=== PATIENT | female | born 1960 | race Caucasian/White ===

== ENCOUNTER 2019-07-10 09:57 | Outpatient (CLI) | payer BC, SELFPAY ==
--- NOTE | 2019-07-11 14:42 | ONC CON_ITS ---
Dr. Sr New Patient Note Patient: Mira Mohan Unit #: [id number]: 1960 Dicatated By: Black Sr M.D.Date of Visit: Jul 10, 2019 Onc MED New Patient/Consult Referring Physician: Dr. Daljit Chen M.D. Chief Complaint: Cervical cancer. History of Present Illness: This is a 58 year-old woman with adenocarcinoma of the endocervix, stage IB1 (T1b1, N1, M0). She has been in good general health. She was seen by Dr. Spence for a well woman check on 02/09/2019. She had an abnormal Pap smear with the finding of atypical glandular cells. She then underwent D&C on 03/09/2019. Pathology showed well-differentiated adenocarcinoma involving multiple sites including the endocervix, the ectocervix, and the endometrium. She was referred to Dr. Chen. She had further evaluation with staging PET/CT on 05/15/2019. That study showed significant metabolism in the endometrium consistent with the known malignancy. There were no other sites of metabolically active malignancy noted. MRI of the pelvis on 05/18/2019 showed foci or wall thickening involving the lower endometrial canal extending along the endocervical canal without definite invasion outside of the uterus or through the cervical stroma. An upper limits of normal size right external iliac lymph node also was noted. On 05/22/2019 she underwent robotic-assisted total laparoscopic radical hysterectomy, bilateral salpingo-oophorectomy, bilateral pelvic and periaortic sentinel lymphadenectomy, and laparoscopic omentectomy. Grossly there did appear to be suspicious sentinel lymph nodes but there was no gross evidence of disease outside the uterus. One small area in the peritoneum on the distal ileum mesentery was biopsied. Pathology showed well differentiated adenocarcinoma which appeared to be arising in the endocervix. There was no malignancy identified in the endometrium. The tumor measured 2.0 cm in maximum diameter. Stromal invasion was measured at 3 mm compared to a total cervical thickness of 13 mm. The ectocervical margin and the radial margin were uninvolved. There was evidence of lymphovascular invasion. The specimen contained a total of 8 lymph nodes, which included 4 sentinel lymph nodes. There was involvement in 1/1 right obturator sentinel lymph node. All other lymph nodes were negative. There was no malignancy identified in the distal ileum mesentery biopsy. She has had an uneventful postoperative recovery. At this point she still has significant fatigue, but she has gone back to work in her [employer] shop. Her ECOG score is 1. She has good appetite. She has gained a little weight. She has not had fever or night sweats. She has been having hot flashes for the past 15 years or so. She does not complain of shortness of breath, cough, or chest pain. She has no GI complaints other than her stools have been a little loose and more frequent since the surgery, though she has not been having actual diarrhea. She has not been aware of any blood in the stool. Her urination is also been more frequent. She has some achiness in her joints, mainly the knees. She occasionally has numbness in her hands. She has no other focal neurologic symptoms. She has been diagnosed with obstructive sleep apnea, but she has not yet been evaluated for CPAP. Past Medical History: Her other medical illnesses include hypertension and obstructive sleep apnea. Past Surgical History: She underwent D&C on 03/09/2019 and she underwent robotic-assisted total laparoscopic radical hysterectomy, bilateral salpingo-oophorectomy, bilateral pelvic and periaortic sentinel lymphadenectomy, and laparoscopic omentectomy on 05/22/2019. Her other surgeries have been limited to Caesarean section and tubal ligation. Medications: Biotin 1 Capsule (of 2500 mcg) Oral daily, hydroCHLOROthiazide 1 Tablet (of 25 mg) Oral daily, Lisinopril 1 Tablet (of 10 mg) Oral daily Allergies: Penicillins Social History: Ms. Mohan is . 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 She is a non-smoker. She does not drink alcohol. Family History: Father age 85, reportedly of flu. He had prostate cancer and diabetes. Mother at age 74 with a blood clot after surgery. One sister is in good health. Review Of Symptoms: Constitutional - Her appetite is good and her weight is up some. No fever or chills. She has hot flashes and sweating. ECOG score is, Eyes - She has had some age-related decline in vision, ENMT - No hearing loss, but she has tinnitus. She has sinus congestion in the evenings. No mouth sores. She has a sore throat this morning, otherwise she does not have any problems. No difficulty swallowing, Hematologic/Lymphatic - No abnormal bruising or bleeding, Respiratory - No shortness of breath. She has sleep apnea, but she has not yet been evaluated for CPAP. No cough. No pleuritic pain or hemoptysis, Cardiovascular - No angina pain. No palpitations, Gastrointestinal - No nausea or vomiting. She has heartburn, depending on what she eats. She has had more frequent loose stools. No blood in the stool or black stools, Genitourinary (F) - No dysuria or hematuria. She has urinary frequency. No urgency or incontinence, Musculoskeletal - She has some achiness in her knees, Integumentary - No skin complications, Neurologic - She has occasional sinus headaches. No dizziness. No numbness/paresthesias or other focal neurologic symptoms, Psychiatric - No anxiety or depression. No insomnia. Vital Signs: Performed on Jul 10, 2019 10:25: 0, 34.65 (HIGH), 2.01 sq.m, 65 in, 97 %, 81 /min, 19 /min, 136/81 mm(hg), 98.3 F (LOW), and 208.2 lbs (HIGH). Physical Examination: Constitutional - She appears to be in good general health, Eyes - Sclerae nonicteric. Conjunctivae clear, ENMT - No lesions noted in the oral cavity, Neck - No mass or thyromegaly, Hematologic/Lymphatic - No cervical, clavicular, or axillary adenopathy, Respiratory - Lungs are clear with good air movement bilaterally, Cardiovascular - Heart rhythm is regular. There is no murmur, gallop, or rub noted, Abdomen - Soft. There is mild tenderness in the upper abdomen. Liver and spleen are not enlarged. There is no abdominal mass or ascites noted and there is no inguinal adenopathy, Back/Spine - No spine or CVA tenderness noted, Extremities - No edema. Dorsalis pulses are palpable bilaterally, Integumentary - No rashes. No suspicious skin lesions noted, Neurologic - No focal neurologic deficits noted. Impression: 1. Patient with well differentiated adenocarcinoma of the endocervix, stage IB1 (T1b1, N1, M0). 2. She underwent robotic-assisted total laparoscopic radical hysterectomy, bilateral salpingo-oophorectomy, bilateral pelvic and periaortic sentinel lymphadenectomy, and laparoscopic omentectomy on 05/22/2019. Her other medical illnesses include: 3. Hypertension. 4. Obstructive sleep apnea. Plan: I reviewed the findings on the imaging studies and the pathology results. We discussed the clinical implications. She has well-differentiated adenocarcinoma of the endocervix. Her disease has been completely resected with the radical hysterectomy procedure, but there was involvement in 1 sentinel lymph node, which does put her at increased risk of recurrence. As such, she has been recommended to undergo postoperative adjuvant chemoradiation. The initial plan will be to administer a standard course of radiation with weekly cisplatin chemotherapy. I reviewed anticipated side effects with the chemotherapy including the potential for nausea/vomiting, fatigue, alopecia, low blood counts, and neuropathy, among others. I will arrange for her to see Dr. Schulte for radiation oncology consultation and planning. I will confer with Dr. Chen regarding any additional treatment he may want to recommend. If he is not intending any other chemotherapy, I will try and administer the cisplatin via peripheral IV, as she does appear to have good peripheral venous access. Signed By: Black Sr M.D. <<Signature on File>>
== END 2019-07-10 09:58 | disposition home or self-care (01) ==
LOC: ONCMED 09:57
PROVIDERS: Family Provider Family Medicine; PCP Family Medicine; Referring Provider Obstetrics & Gynecology Gynecologic Oncology; Visit Provider Internal Medicine Medical Oncology
DX: Z01.89 Encounter for other specified special examinations (principal)

== ENCOUNTER 2019-08-08 06:48 | Outpatient (RCR) | payer BC, SELFPAY ==
--- NOTE | 2019-07-12 14:13 | N.ONRAD NP_ITS ---
Radiation Oncology New Patient Visit Patient: Mira Mohan MR#: [id number] : 1960> Age: 58> Sex: Female> Dictated by: Dr. Christian Schulte Date of Service: 07/12/2019 Referring Physician(s) : Dr. Daljit Chen Primary Diagnosis: C53.0 - malignant neoplasm of endocervix, Diagnosed 07/10/2019 (active), stage ib1, t1b1, n1, m0. Previous Treatment: Robotic assisted total laparoscopic radical hysterectomy, bilateral salpingo-oophorectomy, bilateral pelvic and periaortic sentinel lymphadenectomy and laparoscopic omentectomy on May 22, 2019 Chief complaint: Endocervical adenocarcinoma s/p radical hysterectomy and sentinel lymphadenectomy History of Present Illness: This is a 58 y/o woman with a family history of pros with findings of an abnormal Pap smear on February 09, 2019. She underwent D&C on March 09, 2019 and the pathology showed well-differentiated adenocarcinoma involving endocervix, ectocervix and the endometrium. PET/CT on May 15, 2019 showed significant FDG activity in the endometrium consistent with the known malignancy with no other evidence of hypermetabolic malignancy. MRI of the pelvis on May 18, 2019 showed wall thickening involving the lower endometrial canal extending along the endocervical canal without definite evidence of invasion outside of the uterus or through the cervical stroma. A right external iliac lymph node was also noted. The patient underwent robotic assisted total laparoscopic radical hysterectomy, bilateral salpingo-oophorectomy, bilateral pelvic and periaortic sentinel lymphadenectomy and laparoscopic omentectomy on May 22, 2019. Surgical pathology showed well-differentiated endocervical adenocarcinoma with greatest dimension of 2 cm. Depth of stromal invasion 3/13 mm. Ectocervical and radial margins negative. Lymphovascular invasion present, a total of 8 regional lymph nodes was examined. Metastatic adenocarcinoma was identified in one right obturator sentinel lymph node. Omentectomy specimen negative for malignancy. Pathological staging is pT1B1, pN1. The patient has recovered from the surgery well with no complications. She notes occasional right pelvic pain but denies nausea, vomiting, diarrhea, dysuria, hematuria or vagina spotting. Current Medications: Biotin, hydroCHLOROthiazide, lisinopril. Allergies: Penicillins. Medical History: - Hypertension, - obstructive sleep apnea. No history of collagen vascular disease. No previous radiation therapy. Surgical History: Caesarean section, dialation & curettage on 03/09/2019, laparoscopic radical hysterectomy, bilateral salpingo-oophorectomy, omentectomy, lymph node sampling on 05/22/2019 and tubal ligation in 1986. Family History: Father age 85, reportedly of flu. He had prostate cancer and diabetes. Mother at age 74 with a blood clot after surgery. One sister is in good health. Social History: Last screened on 07/12/2019 - Never smoked. Screened on 07/10/2019 - Never drank. 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 Age of menarche at 14 years old. Went through natural menopause around age [age] years old. No H/O receiving HRT. Has H/O using BCP for about 3 to 4 years. Review of Systems: Constitutional - Complains of moderate fatigue. Complains of night sweats which occur every night. Denies lack of appetite, fever and change in weight. Eyes - Denies blurred vision. ENMT - Complains of tinnitus. Denies dysphagia, ear pain, mouth dryness, stomatitis and altered taste. Neck - Denies neck pain. Integumentary - Denies rash. Breasts - Denies pain. Cardiovascular - Complains of occasional palpatiations. Denies arrhythmias, chest pain and edema. Respiratory - Complains of a mild cough occasionally. Denies dyspnea and wheezing. Gastrointestinal - Complains of persistent diarrhea which is characterized as loose, semisolid in the last week has been having to go 3 to 4 times per day. Complains of mild heartburn / dyspepsia. Denies abdominal pain, constipation, melena / GI bleeding, nausea and vomiting. Genitourinary (F) - Complains of incontinence since the surgery. Complains of nocturia gets up about 1 time per night. Complains of urgency that began within the last several days. Denies dysuria, frequency, hematuria, vaginal discharge / bleeding and vaginal spotting. Musculoskeletal - Complains of arthritis and joint pain in the knees, fingers, right hip, and lower back. Denies bone pain. Has occasional lower right groin pain. Neurologic - Complains of headaches occasionally. Denies dizziness and abnormal gait. Endocrine - hot flashes for the past 15 years. Denies diabetes and thyroid disease. Hematologic/Lymphatic - Denies tender or enlarged lymph nodes. Vital Signs: Performed on 07/12/2019 9:32 AM BMI - 34.647 kg/m2 (high), Height - 65.00 in, Weight - 208.2 lbs, Temperature - 98.3 f, Pulse - 72, Respiration - 18, O2 Sat - 96 %, Pain - 0, Fatigue - 5 and BP - 117/ 83 mm(hg). Physical Exam: Pertinent to diagnosis and treatment. General: Alert and oriented x 3. No acute distress. HEENT: Normocephalic, atraumatic. EOMI ( Extraocular Movements Intact), PERRLA ( Pupils Equal, Round, Reactive to Light and Accommodation), Sclerae anicteric. Oral cavity is clear without lesions, masses or ulcers. NECK: Supple without supraclavicular or jugular lymphadenopathy. LUNGS: Clear to auscultation bilaterally without rales, rhonchi or wheeze. HEART: Regular rate and rhythm, normal S1 and S2 without murmur, gallop or rub. MUSCULOSKELETAL: No tenderness or percussion pain over the axial skeleton, scapulae or pelvis. ABDOMEN: Soft, nontender, nondistended without masses or organomegaly. Bowel sounds are present. Surgical incisions are healed up well with no signs of bleeding or infection. EXTREMITIES: No peripheral edema is identified. Limited motor and sensory examination are grossly intact and symmetric bilaterally. NEUROLOGIC: Cranial nerves II ???XII are grossly intact. Normal sensation, strength 5/5 in all extremities, normal gait, no ataxia. Performance Status: 1 - No physically strenuous activity, but ambulatory and able to carry out light or sedentary work (e.g. office work, light house work). (ECOG) Pathology: Endocervical adenocarcinoma Lab: none pending Impression: The patient is a 58 year old woman with a diagnosis of pT1b1, pN1, M0 endocervical adenocarcinoma status post laparoscopic radical hysterectomy, bilateral salpingo-oophorectomy, bilateral pelvic and periaortic sentinel lymphadenectomy. Plan: We will deliver adjuvant concurrent chemoradiation to the pelvis. She will see Dr. Mohr at [facility] in [place] to be evaluated for HDR brachytherapy to the vaginal cuff. The procedure, benefit, risks and potential side effects of radiation therapy were explained to the patient. The potential side effects include but are not limited to fatigue, skin reaction, pubic hair loss, urinary symptoms such as dysuria, urgency, frequency, hematuria, nocturia and incontinence, rectal irritation/bleeding, diarrhea, bowel obstruction, damage to femoral heads, infertility, urethral/vaginal stricture, proctitis, and secondary malignancy. Ms Mohan expressed good understanding and decided to proceed with the recommended treatment. She has signed an informed consent for radiotherapy. She will be scheduled for CT simulation and we will coordinate with med onc to start concurrent chemoradiation therapy. Signed by: 07/12/2019 2:11:55 PM <<Signature on File>> CPT Code: CPT Code: Signed By: Dr. Christian Schulte, 07/12/2019 2:11:56 PM <<Signature on File>>
--- NOTE | 2019-07-13 | CT_ITS ---
Radiation Therapy Planning CT images; total exam DLP: 3151.71 mGy-cm MTDD
[2019-07-24] MEDS: sodium chloride 0.9% 250 ML 75 ML IV (08:55)
[2019-07-24 09:10] LABS: Basophils % 0.6 %; Eosinophils # 0.1 10^3/uL (0.0-0.8); Eosinophils % 2.6 %; Hematocrit 39.2 % (37.0-47.0); Hemoglobin 13.2 g/dL (11.5-15.3); Lymphocytes # 1.4 10^3/uL (0.8-4.8); Mean Corpuscular HGB Conc 33.7 g/dL (30.0-36.0); Mean Corpuscular Volume 94.9 fL (81-99); Mean Platelet Volume 10.8 fL (7.4-10.4); Monocytes # 0.3 10^3/uL (0.2-0.9); Monocytes % 6.4 %; Neutrophils # 2.9 10^3/uL (1.8-7.7); Neutrophils % 61.2 %; Nucleated Red Blood Cells % 0 %; Platelet Count 221 10^3/cmm (130-400); Red Blood Count 4.13 10^6/uL (4.1-5.3); Red Cell Distribution Width 12.1 % (12.1-15.1); White Blood Count 4.7 10^3/uL (4.0-10.0)
[2019-07-24 09:33] LABS: Alanine Aminotransferase 18 U/L (0-33); Albumin Level 4.2 g/dL (3.5-5.2); Alkaline Phosphatase 67 IU/L (35-105); Aspartate Amino Transferase 16 U/L (0-32); Blood Urea Nitrogen 12 mg/dL (6-20); Calcium 9.4 mg/dL (8.5-10.5); Carbon Dioxide 27 mmol/L (22-29); Chloride 104 mmol/L (98-107); Globulin 2.8 g/dL (1.3-4.6); Glomerular Filtration Rate 85.9 mL/min (90-130); Glucose 155 mg/dL (65-115); Osmolality Calculated 289 mOsm/kg (285-295); Sodium 140 mmol/L (136-145); Total Bilirubin 0.5 mg/dL (0.15-1.2)
[2019-07-24] MEDS: FUROsemide 10 mg/mL SDV 2mL 20 MG IV (13:12)
[2019-07-24] MEDS: potassium chloride 20 MEQ in sodium chloride 0.9% 500 ML 250 MEQ IV (13:15)
--- NOTE | 2019-07-25 11:54 | ONCRAD TMN_ITS ---
Radiation Oncology Weekly Treatment Management Patient: Mira Mohan MR#: [id number] : 1960> Age: 59> Sex: Female Dictated by: Dr. Mahendra Farnsworth Date of Service: 07/25/2019 Referring Physician(s) : Dr. Daljti Chen Primary Diagnosis: C53.0 - Malignant neoplasm of endocervix, Diagnosed 07/10/2019 (Active) Stage IB1, T1b1, N1, M0 Radiotherapy to date: Course: Pelvis 2019, Treatment Site: Pelvis 45Gy, Ref. ID: Plevis 45Gy, Energy: 15X, Dose/Fx (cGy): 180, #Fx: , Dose Correction (cGy): 0, Total Dose (cGy): 360, Start Date: 07/24/2019, Elapsed Days: 1 Current Complaints/Interval History: Ms. Mohan started postoperative radiation to the pelvis yesterday. She also received her first session of weekly chemotherapy. She tolerated the chemotherapy well. She had a wave of nausea about 5 PM and has had no other problem. With her routine blood work yesterday she had a glucose of 155 which was a surprise to her. She was not absolutely fasting but had but had had minimal intake prior to that. She states her glucose is usually 95 in the morning. I told her she will be having blood work weekly and that can be monitored. She had no problems with her first radiation treatment. She did have catheter for about a week postoperatively. She has periodically had slight tingling with urination and occasional urgency. There is been no significant change recently. She denies hematuria, dysuria, or pyuria. I told her if her symptoms are troublesome we will get a urinalysis to evaluate for infection. I do not believe that she needs a urinalysis at this time. She asked about complications from treatment and if she can do anything to prevent them. I told her there is nothing specific that she can do to protect the bowel and bladder. We discussed vaginal stenosis and the use of a dilator. She already has the dilator. She will need to use it because her is diabetic and they are not sexually active. I discussed that the dilator will be extremely important if she undergoes brachytherapy following external beam radiation. No other questions. Continue as planned. Current Medications: Aloxi, biotin, cISplatin, dexamethasone Sodium Phosphate, emend, furosemide, hydroCHLOROthiazide, lisinopril, lORazepam, magnesium Sulfate, potassium Chloride, prochlorperazine Maleate. Allergies: Penicillins. Vital Signs: Physical Exam: Appears stable, no skin erythema or desquamation. Performance Status: 1 - No physically strenuous activity, but ambulatory and able to carry out light or sedentary work (e.g. office work, light house work). (ECOG) Lab: None pending in Radiation Oncology. Test performed on 07/24/2019 8:50 AM MPV - 10.8 fl (high), eGFR - 85.9 ml/min (low) and Glucose - 155 mg/dl (high). Imaging: No new diagnostic imaging was performed since the last weekly treatment visit. All radiation therapy related imaging (including but not limited to kV, MV, and CBCT generated images) was reviewed. Appropriate changes, if any, were made to assure accurate target localization. Impression/Plan: Tolerating treatment well with expected side effects. Continue treatment as planned. CPT: 64209 Signed by: Dr. Mahendra Farnsworth>07/25/2019 11:52:25 AM <<Signature on File>>
[2019-07-31] MEDS: sodium chloride 0.9% 250 ML 75 ML IV (08:50)
[2019-07-31 08:51] LABS: Basophils % 0.2 %; Eosinophils # 0.1 10^3/uL (0.0-0.8); Eosinophils % 2.4 %; Hematocrit 40.9 % (37.0-47.0); Hemoglobin 13.8 g/dL (11.5-15.3); Lymphocytes # 0.8 10^3/uL (0.8-4.8); Lymphocytes % 17.9 %; Mean Corpuscular HGB Conc 33.7 g/dL (30.0-36.0); Mean Corpuscular Volume 94.9 fL (81-99); Mean Platelet Volume 10.4 fL (7.4-10.4); Monocytes # 0.2 10^3/uL (0.2-0.9); Neutrophils # 3.4 10^3/uL (1.8-7.7); Neutrophils % 73.8 %; Nucleated Red Blood Cells % 0 %; Platelet Count 226 10^3/cmm (130-400); Red Blood Count 4.31 10^6/uL (4.1-5.3); Red Cell Distribution Width 11.8 % (12.1-15.1); White Blood Count 4.6 10^3/uL (4.0-10.0)
[2019-07-31 09:08] LABS: Alanine Aminotransferase 20 U/L (0-33); Albumin Level 4.5 g/dL (3.5-5.2); Alkaline Phosphatase 76 IU/L (35-105); Anion Gap 12.8 (5-19); Aspartate Amino Transferase 12 U/L (0-32); Blood Urea Nitrogen 11 mg/dL (6-20); Calcium 9.9 mg/dL (8.5-10.5); Carbon Dioxide 29 mmol/L (22-29); Chloride 98 mmol/L (98-107); Globulin 2.9 g/dL (1.3-4.6); Glomerular Filtration Rate 102.7 mL/min (90-130); Glucose 143 mg/dL (65-115); Osmolality Calculated 281 mOsm/kg (285-295); Potassium 3.8 mmol/L (3.5-5.1); Sodium 136 mmol/L (136-145); Total Bilirubin 0.4 mg/dL (0.15-1.2); Total Protein 7.4 g/dL (6.6-8.7)
[2019-07-31] MEDS: FUROsemide 10 mg/mL SDV 2mL 20 MG IV (12:56)
[2019-07-31] MEDS: potassium chloride 20 MEQ in sodium chloride 0.9% 500 ML 500 MEQ IV (13:00)
--- NOTE | 2019-08-01 09:25 | ONC FU_ITS ---
Dr. Sr Patient Follow-Up Note Patient: Mira Mohan Unit #: [id number]: 1960 Dicatated By: Black Sr M.D.Date of Visit:Jul 31, 2019 Onc Med Follow-up/Prog Note Chief Complaint: Cervical cancer. History of Present Illness: This is a 58 year-old woman with adenocarcinoma of the endocervix, stage IB1 (T1b1, N1, M0). She has been in good general health. She was seen by Dr. Spence for a well woman check on 02/09/2019. She had an abnormal Pap smear with the finding of atypical glandular cells. She then underwent D&C on 03/09/2019. Pathology showed well-differentiated adenocarcinoma involving multiple sites including the endocervix, the ectocervix, and the endometrium. She was referred to Dr. Chen. She had further evaluation with staging PET/CT on 05/15/2019. That study showed significant metabolism in the endometrium consistent with the known malignancy. There were no other sites of metabolically active malignancy noted. MRI of the pelvis on 05/18/2019 showed foci or wall thickening involving the lower endometrial canal extending along the endocervical canal without definite invasion outside of the uterus or through the cervical stroma. An upper limits of normal size right external iliac lymph node also was noted. On 05/22/2019 she underwent robotic-assisted total laparoscopic radical hysterectomy, bilateral salpingo-oophorectomy, bilateral pelvic and periaortic sentinel lymphadenectomy, and laparoscopic omentectomy. Grossly there did appear to be suspicious sentinel lymph nodes but there was no gross evidence of disease outside the uterus. One small area in the peritoneum on the distal ileum mesentery was biopsied. Pathology showed well differentiated adenocarcinoma which appeared to be arising in the endocervix. There was no malignancy identified in the endometrium. The tumor measured 2.0 cm in maximum diameter. Stromal invasion was measured at 3 mm compared to a total cervical thickness of 13 mm. The ectocervical margin and the radial margin were uninvolved. There was evidence of lymphovascular invasion. The specimen contained a total of 8 lymph nodes, which included 4 sentinel lymph nodes. There was involvement in 1/1 right obturator sentinel lymph node. All other lymph nodes were negative. There was no malignancy identified in the distal ileum mesentery biopsy. Her pathologic staging was T1b1, N1. With the involved lymph node, she was recommended to undergo chemoradiation utilizing weekly cisplatin for the chemotherapy. Her other medical illnesses have been limited to hypertension and obstructive sleep apnea. She has not yet been evaluated for CPAP. She is a non-smoker. INTERIM HISTORY: She began week 1 cisplatin concurrently with radiation on 07/24/2019. She is seen for a scheduled visit. She has been feeling pretty good generally, though she does have fatigue and she has been sleeping a lot. She is still going to work part-time. ECOG score is 1. Thus far she has had just mild nausea. Her appetite is okay, though she also is having some dysguesia. She had a slight fever 1 day last week. She has had a few hot flashes. She does have a mild headache for most of the week. She also reports having had ringing in her ears and tingling in her fingers and toes the first evening after her treatment last week. Those symptoms had resolved by the following day. She has had no mouth sores. She has no shortness of breath, cough, or chest pain. She has had some mild acid reflux. She has no complaints with bowel or bladder function. She has no significant joint or bone pain. Medications: Biotin 1 Capsule (of 2500 mcg) Oral daily, hydroCHLOROthiazide 1 Tablet (of 25 mg) Oral daily, Lisinopril 1 Tablet (of 10 mg) Oral daily Allergies: Penicillins Review of Systems: Constitutional - Her energy level is low, but she is able to go to work for a few hours a day. Her appetite comes and goes. Her weight is stable. She had a slight fever last week. No chills. She has had a few hot flashes with sweating. ECOG score is 1, ENMT - No sinus congestion/drainage. No mouth sores. No sore throat or difficulty swallowing. She had some ringing in her ears the first evening following her treatment last week, Hematologic/Lymphatic - She bruises easily, Respiratory - No shortness of breath. No cough. No pleuritic pain or hemoptysis, Cardiovascular - No angina pain. No palpitations, Gastrointestinal - She has had just mild nausea. No vomiting. She is having occasioanl heartburn. No diarrhea or constipation. No blood in the stool or black stools, Genitourinary (F) - No dysuria or hematuria. No urinary frequency. No urgency or incontinence, Musculoskeletal - No joint or bone pain, Integumentary - No skin complications, Neurologic - She has had a mild headache. No dizziness. She had some numbness and tingling in her hands, also just the first evening following her treatment, Psychiatric - No anxiety or depression. No insomnia. Vital Signs: Performed on Jul 31, 2019 09:00 Height - 65.00 in Weight - 206.4 lbs (LOW) BSA - 2.00 sq.m BMI - 34.35 (HIGH) Temperature - 98.56 F Pulse - 70 /min Respiration - 18 /min BP - 130/72 mm(hg) O2 Sat - 97 % Pain - 0 Physical Examination: Constitutional - She looks good generally, Eyes - Sclerae nonicteric. Conjunctivae clear, ENMT - No lesions noted in the oral cavity, Hematologic/Lymphatic - No cervical, clavicular, or axillary adenopathy, Respiratory - Lungs are clear with good air movement bilaterally, Cardiovascular - Heart rhythm is regular. There is no murmur, gallop, or rub noted, Abdomen - Soft. Liver and spleen are not enlarged. There is no abdominal mass or ascites noted and there is no inguinal adenopathy, Extremities - No edema, Neurologic - No focal neurologic deficits noted. Lab/Imaging: Test performed on Jul 31, 2019 08:28 Sodium 136 mmol/L Potassium 3.8 mmol/L Chloride 98 mmol/L CO2 29 mmol/L Anion Gap 12.8 BUN 11 mg/dL Creatinine 0.6 mg/dL Cr Clearance (Est) 152.3700 mL/min eGFR 102.7 mL/min Glucose 143 mg/dL Calcium 9.9 mg/dL Protein, Total 7.4 g/dL Albumin 4.5 g/dL Globulin 2.9 g/dL Bilirubin, Total 0.4 mg/dL ALT (SGPT) 20 U/L AST (SGOT) 12 U/L Alkaline Phosphatase 76 IU/L WBC 4.6 10 3/uL RBC 4.31 10 6/uL HGB 13.8 g/dL HCT 40.9 % MCV 94.9 fL MCH 32.0 pg MCHC 33.7 g/dL RDW 11.8 % Platelet Count 226 10 3/cmm MPV 10.4 fL Neutrophils 3.4 10 3/uL Lymphocytes 0.8 10 3/uL Monocytes 0.2 10 3/uL Eosinophils 0.1 10 3/uL Basophils 0.0 10 3/uL Neutrophil % 73.8 % Lymphocyte % 17.9 % Monocyte % 5.0 % Eosinophil % 2.4 % Basophils % 0.2 % Impression: 1. Patient with well differentiated adenocarcinoma of the endocervix, stage IB1 (T1b1, N1, M0). 2. She underwent robotic-assisted total laparoscopic radical hysterectomy, bilateral salpingo-oophorectomy, bilateral pelvic and periaortic sentinel lymphadenectomy, and laparoscopic omentectomy on 05/22/2019. Her other medical illnesses include: 3. Hypertension. 4. Obstructive sleep apnea. She is now undergoing adjuvant chemoradiation utilizing weekly cisplatin for the chemotherapy. She began her week 1 cisplatin, concurrently with radiation on 07/24/2019. She has had fatigue, mild headache, and mild nausea following her chemotherapy. Her most significant complaint was neuropathy which began on the evening of the infusion, but the symptoms had resolved by the following day. Plan: She will proceed with her week 2 cisplatin at 40 mg/m??? by IV infusion, and she continues her daily radiation. If her neuropathy symptoms worsen with this treatment, we will either need to stop the chemotherapy or try adding amifostine preventatively. Signed By: Black Sr M.D. <<Signature on File>>
--- NOTE | 2019-08-01 15:06 | ONCRAD TMN_ITS ---
Radiation Oncology Weekly Treatment Management Patient: Mira Mohan MR#: [id number] : 1960> Age: 59> Sex: Female Dictated by: Dr. Mahendra Farnsworth Date of Service: 08/01/2019 Referring Physician(s) : Dr. 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 ID: Plevis 45Gy, Energy: 15X, Dose/Fx (cGy): 180, #Fx: , Dose Correction (cGy): 0, Total Dose (cGy): 1,260, Start Date: 07/24/2019, Elapsed Days: 8 Current Complaints/Interval History: Mrs. Mohan has completed 7 treatments. She received her second session of chemotherapy yesterday. She tolerated it well. She has mild fatigue. She has developed some loose stools but has not had true diarrhea. She has not taken any Imodium. We discussed its use today. She has no bladder complaints. She has no questions about the current course of therapy. We once again discussed that brachii therapy following external beam radiation is a possibility. She had some questions about the schedule of brachii therapy as well as about the applicator and how it is applied. That was discussed. She then asked how much it contributes to cure. I told her it probably has a minor contribution to the cure rate but if a vaginal cuff recurrence can be prevented, it is very worthwhile. Discussed the difficult hygiene problem that an uncontrolled vaginal cuff recurrence can present. Continue treatment as planned. Current Medications: Aloxi, biotin, cISplatin, dexamethasone Sodium Phosphate, emend, furosemide, hydroCHLOROthiazide, lisinopril, lORazepam, magnesium Sulfate, potassium Chloride, prochlorperazine Maleate. Allergies: Penicillins. Vital Signs: Performed on 08/01/2019 10:47 AM BMI - 34.946 kg/m2 (high), Height - 65.00 in, Weight - 210.0 lbs, Temperature - 98.4 f, Pulse - 66, Respiration - 18, O2 Sat - 97 %, Pain - 0 and BP - 128/ 80 mm(hg). Physical Exam: Appears stable, no skin erythema or desquamation. Performance Status: 1 - No physically strenuous activity, but ambulatory and able to carry out light or sedentary work (e.g. office work, light house work). (ECOG) Lab: None pending in Radiation Oncology. Test performed on 07/31/2019 8:28 AM RDW - 11.8 % (low), Cr Clearance (Est) - 152.3700 ml/min (high) and Glucose - 143 mg/dl (high). Imaging: No new diagnostic imaging was performed since the last weekly treatment visit. All radiation therapy related imaging (including but not limited to kV, MV, and CBCT generated images) was reviewed. Appropriate changes, if any, were made to assure accurate target localization. Impression/Plan: Tolerating treatment well with expected side effects. Continue treatment as planned. CPT: 17204 Signed by: Dr. Mahendra Farnsworth>08/01/2019 3:05:10 PM <<Signature on File>>
[2019-08-07] MEDS: sodium chloride 0.9% 250 ML 75 ML IV (10:00)
[2019-08-07 10:38] LABS: Basophils % 0.2 %; Eosinophils # 0.1 10^3/uL (0.0-0.8); Eosinophils % 1.2 %; Hematocrit 38.5 % (37.0-47.0); Hemoglobin 13.1 g/dL (11.5-15.3); Lymphocytes # 0.4 10^3/uL (0.8-4.8); Lymphocytes % 10.6 %; Mean Corpuscular Hemoglobin 31.6 pg (28.0-34.0); Mean Platelet Volume 10.1 fL (7.4-10.4); Monocytes # 0.2 10^3/uL (0.2-0.9); Monocytes % 4.6 %; Neutrophils # 3.5 10^3/uL (1.8-7.7); Neutrophils % 82.9 %; Nucleated Red Blood Cells % 0 %; Platelet Count 161 10^3/cmm (130-400); Red Blood Count 4.14 10^6/uL (4.1-5.3); Red Cell Distribution Width 11.9 % (12.1-15.1); White Blood Count 4.2 10^3/uL (4.0-10.0)
[2019-08-07 10:56] LABS: Alanine Aminotransferase 18 U/L (0-33); Albumin Level 4.3 g/dL (3.5-5.2); Alkaline Phosphatase 70 IU/L (35-105); Anion Gap 18.8 (5-19); Aspartate Amino Transferase 12 U/L (0-32); Blood Urea Nitrogen 12 mg/dL (6-20); Calcium 9.8 mg/dL (8.5-10.5); Carbon Dioxide 25 mmol/L (22-29); Chloride 96 mmol/L (98-107); Globulin 2.6 g/dL (1.3-4.6); Glomerular Filtration Rate 73.7 mL/min (90-130); Glucose 140 mg/dL (65-115); Osmolality Calculated 280 mOsm/kg (285-295); Potassium 3.8 mmol/L (3.5-5.1); Sodium 136 mmol/L (136-145); Total Bilirubin 0.4 mg/dL (0.15-1.2); Total Protein 6.9 g/dL (6.6-8.7)
[2019-08-07] MEDS: FUROsemide 10 mg/mL SDV 2mL 20 MG IV (14:05)
[2019-08-07] MEDS: potassium chloride 20 MEQ in sodium chloride 0.9% 500 ML 250 MEQ IV (14:08)
[2019-08-07] MEDS: lidocaine 1% INJ 20 mL 5 ML IV (14:40)
--- NOTE | 2019-08-11 06:33 | ONC FU_ITS ---
Dr. Sr Patient Follow-Up Note Patient: Mira Mohan Unit #: [id number]: 1960 Dicatated By: Black Sr M.D.Date of Visit:Aug 07, 2019 Onc Med Follow-up/Prog Note Chief Complaint: Cervical cancer. History of Present Illness: This is a 59 year-old woman with adenocarcinoma of the endocervix, stage IB1 (T1b1, N1, M0). She has been in good general health. She was seen by Dr. Spence for a well woman check on 02/09/2019. She had an abnormal Pap smear with the finding of atypical glandular cells. She then underwent D&C on 03/09/2019. Pathology showed well-differentiated adenocarcinoma involving multiple sites including the endocervix, the ectocervix, and the endometrium. She was referred to Dr. Chen. She had further evaluation with staging PET/CT on 05/15/2019. That study showed significant metabolism in the endometrium consistent with the known malignancy. There were no other sites of metabolically active malignancy noted. MRI of the pelvis on 05/18/2019 showed foci or wall thickening involving the lower endometrial canal extending along the endocervical canal without definite invasion outside of the uterus or through the cervical stroma. An upper limits of normal size right external iliac lymph node also was noted. On 05/22/2019 she underwent robotic-assisted total laparoscopic radical hysterectomy, bilateral salpingo-oophorectomy, bilateral pelvic and periaortic sentinel lymphadenectomy, and laparoscopic omentectomy. Grossly there did appear to be suspicious sentinel lymph nodes but there was no gross evidence of disease outside the uterus. One small area in the peritoneum on the distal ileum mesentery was biopsied. Pathology showed well differentiated adenocarcinoma which appeared to be arising in the endocervix. There was no malignancy identified in the endometrium. The tumor measured 2.0 cm in maximum diameter. Stromal invasion was measured at 3 mm compared to a total cervical thickness of 13 mm. The ectocervical margin and the radial margin were uninvolved. There was evidence of lymphovascular invasion. The specimen contained a total of 8 lymph nodes, which included 4 sentinel lymph nodes. There was involvement in 1/1 right obturator sentinel lymph node. All other lymph nodes were negative. There was no malignancy identified in the distal ileum mesentery biopsy. Her pathologic staging was T1b1, N1. With the involved lymph node, she was recommended to undergo chemoradiation utilizing weekly cisplatin for the chemotherapy. Her other medical illnesses have been limited to hypertension and obstructive sleep apnea. She has not yet been evaluated for CPAP. She is a non-smoker. INTERIM HISTORY: She began week 1 cisplatin concurrently with radiation on 07/24/2019. She experienced some tinnitus and peripheral neuropathy symptoms during the first 24 hours after that treatment. She otherwise tolerated it well. She continued with her week to cisplatin on 07/31/2019. She is seen for a scheduled visit. She has not been feeling as good generally. She says she has no energy, but she is able to do light work. Her appetite is good. She has had no fever or night sweats. She has occasional hot flashes. Her tinnitus got slightly worse after her second cisplatin infusion. She again had tingling in her fingers and toes, but only for the first day after the treatment. She has had a sore on the roof of her mouth. She has no shortness of breath, cough, or chest pain. She has had just very mild nausea. She had some diarrhea last week, but it was controlled with Imodium. She has no complaints. She has not been having headache or dizziness. She is starting to have some skin sensitivity in the area of her radiation. Medications: Biotin 1 Capsule (of 2500 mcg) Oral daily, hydroCHLOROthiazide 1 Tablet (of 25 mg) Oral daily, Lisinopril 1 Tablet (of 10 mg) Oral daily Allergies: Penicillins Review of Systems: Constitutional - Her energy is okay. She able to do light housework. Appetite is good and weight is stable. No fever or chills. She has occasional hot flashes. No night sweats. ECOG score is 1, ENMT - No sinus congestion/drainage. She has a sore to the roof of her mouth. No sore throat or difficulty swallowing. She feels that her tinnitus is a little worse, Hematologic/Lymphatic - No abnormal bruising or bleeding, Respiratory - No shortness of breath. No cough. No pleuritic pain or hemoptysis, Cardiovascular - No angina pain. No palpitations, Gastrointestinal - No nausea or vomiting. No heartburn or acid reflux. She had diarrhea last week, but it was controlled with Imodium. No constipation. No blood in the stool or black stools, Genitourinary (F) - No dysuria or hematuria. No urinary frequency. No urgency or incontinence, Musculoskeletal - No joint or bone pain, Integumentary - She is starting to have some skin irritation in the area of her radiation, Neurologic - No headache or dizziness. She had some tingling in her fingers and toes during the first day following her treatment, Psychiatric - No anxiety or depression. No insomnia. Vital Signs: Performed on Aug 07, 2019 11:19 Height - 65.00 in Weight - 207.4 lbs (LOW) BSA - 2.01 sq.m BMI - 34.51 (HIGH) Temperature - 98.4 F Pulse - 66 /min Respiration - 20 /min BP - 131/76 mm(hg) O2 Sat - 98 % Pain - 0 Physical Examination: Constitutional - She looks good generally, Eyes - Sclerae nonicteric. Conjunctivae clear, ENMT - There is a small ulceration in the roof of the mouth. There are no other lesions noted in the oral cavity, Hematologic/Lymphatic - No cervical, clavicular, or axillary adenopathy, Respiratory - Lungs are clear with good air movement bilaterally, Cardiovascular - Heart rhythm is regular. There is no murmur, gallop, or rub noted, Abdomen - Soft. Liver and spleen are not enlarged. There is no abdominal mass or ascites noted and there is no inguinal adenopathy, Extremities - No edema, Neurologic - No focal neurologic deficits noted. Lab/Imaging: Test performed on Aug 07, 2019 10:08 Sodium 136 mmol/L Potassium 3.8 mmol/L Chloride 96 mmol/L CO2 25 mmol/L Anion Gap 18.8 BUN 12 mg/dL Creatinine 0.8 mg/dL Cr Clearance (Est) 114.2800 mL/min eGFR 73.7 mL/min Glucose 140 mg/dL Calcium 9.8 mg/dL Protein, Total 6.9 g/dL Albumin 4.3 g/dL Globulin 2.6 g/dL Bilirubin, Total 0.4 mg/dL ALT (SGPT) 18 U/L AST (SGOT) 12 U/L Alkaline Phosphatase 70 IU/L WBC 4.2 10 3/uL RBC 4.14 10 6/uL HGB 13.1 g/dL HCT 38.5 % MCV 93.0 fL MCH 31.6 pg MCHC 34.0 g/dL RDW 11.9 % Platelet Count 161 10 3/cmm MPV 10.1 fL Neutrophils 3.5 10 3/uL Lymphocytes 0.4 10 3/uL Monocytes 0.2 10 3/uL Eosinophils 0.1 10 3/uL Basophils 0.0 10 3/uL Neutrophil % 82.9 % Lymphocyte % 10.6 % Monocyte % 4.6 % Eosinophil % 1.2 % Basophils % 0.2 % Impression: 1. Patient with well differentiated adenocarcinoma of the endocervix, stage IB1 (T1b1, N1, M0). 2. She underwent robotic-assisted total laparoscopic radical hysterectomy, bilateral salpingo-oophorectomy, bilateral pelvic and periaortic sentinel lymphadenectomy, and laparoscopic omentectomy on 05/22/2019. Her other medical illnesses include: 3. Hypertension. 4. Obstructive sleep apnea. She is undergoing adjuvant chemoradiation utilizing weekly cisplatin for the chemotherapy. She began her week 1 cisplatin, concurrently with radiation on 07/24/2019. She had neuropathy symptoms and tinnitus the evening following her treatment, but the symptoms had resolved by the following day. Other side effects were mild. She continued with week 2 on 07/31/2019. She again experienced neuropathy symptoms lasting less than 24 hours. Her tinnitus worsened slightly. She is also having some fatigue, and she does have a sore on the roof of her mouth. Overall, though, she is tolerating her treatment well. Plan: She will proceed with her week 3 cisplatin at 40 mg/m??? by IV infusion, and she continues her daily radiation. She is instructed to use salt and soda rinses for the mouth sore. I will see her again in 1 week. Signed By: Black Sr M.D. <<Signature on File>>
== END 2019-08-08 23:59 | disposition home or self-care (01) ==
LOC: ONCMED 06:48
PROVIDERS: Internal Medicine Medical Oncology; Family Provider Family Medicine; PCP Family Medicine
DX: Z51.0 Encounter for antineoplastic radiation therapy (principal); Z51.11 Encounter for antineoplastic chemotherapy; C53.0 Malignant neoplasm of endocervix; C77.2 Secondary and unspecified malignant neoplasm of intra-abdominal lymph nodes; I10 Essential (primary) hypertension; G47.33 Obstructive sleep apnea (adult) (pediatric); Z79.899 Other long term (current) drug therapy; Z90.722 Acquired absence of ovaries, bilateral; Z90.710 Acquired absence of both cervix and uterus
CPT/HCPCS: 77290; 77295; 77300; 77332; 77334; 77336; 77387; 77412; 77470; 80053; 85025; 96366; 96367; 96375; 96413; 99205; 99214; J1100; J1453; J1940; J2001; J2469; J3475; J3480; J7030; J7040; J7050; J9060

== ENCOUNTER 2019-09-04 06:43 | Outpatient (RCR) | payer BC, SELFPAY ==
[2019-08-14] MEDS: sodium chloride 0.9% 100 ML 75 ML ×2 (09:30→12:32)
[2019-08-14] MEDS: lidocaine 1% INJ 20 mL 5 ML IV (09:30)
[2019-08-14 09:37] LABS: Basophils % 0.6 %; Eosinophils # 0.1 10^3/uL (0.0-0.8); Eosinophils % 1.9 %; Hematocrit 34.2 % (37.0-47.0); Hemoglobin 11.8 g/dL (11.5-15.3); Lymphocytes # 0.3 10^3/uL (0.8-4.8); Lymphocytes % 9.5 %; Mean Corpuscular HGB Conc 34.5 g/dL (30.0-36.0); Mean Corpuscular Hemoglobin 32.3 pg (28.0-34.0); Mean Corpuscular Volume 93.7 fL (81-99); Mean Platelet Volume 9.4 fL (7.4-10.4); Monocytes # 0.2 10^3/uL (0.2-0.9); Monocytes % 5.7 %; Neutrophils # 2.6 10^3/uL (1.8-7.7); Neutrophils % 81.7 %; Nucleated Red Blood Cells % 0 %; Platelet Count 179 10^3/cmm (130-400); Red Blood Count 3.65 10^6/uL (4.1-5.3); Red Cell Distribution Width 12.2 % (12.1-15.1); White Blood Count 3.2 10^3/uL (4.0-10.0)
[2019-08-14 09:50] LABS: Alanine Aminotransferase 16 U/L (0-33); Albumin Level 4.1 g/dL (3.5-5.2); Alkaline Phosphatase 70 IU/L (35-105); Anion Gap 18.6 (5-19); Aspartate Amino Transferase 12 U/L (0-32); Blood Urea Nitrogen 13 mg/dL (6-20); Calcium 9.5 mg/dL (8.5-10.5); Carbon Dioxide 22 mmol/L (22-29); Chloride 98 mmol/L (98-107); Globulin 2.6 g/dL (1.3-4.6); Glomerular Filtration Rate 73.7 mL/min (90-130); Glucose 133 mg/dL (65-115); Osmolality Calculated 278 mOsm/kg (285-295); Potassium 3.6 mmol/L (3.5-5.1); Sodium 135 mmol/L (136-145); Total Bilirubin 0.4 mg/dL (0.15-1.2); Total Protein 6.7 g/dL (6.6-8.7)
[2019-08-14] MEDS: FUROsemide 10 mg/mL SDV 2mL 20 MG IV (13:17)
[2019-08-14] MEDS: potassium chloride 20 MEQ in sodium chloride 0.9% 500 ML 250 MEQ IV (13:20)
--- NOTE | 2019-08-14 20:26 | ONC FU_ITS ---
Dr. Sr Patient Follow-Up Note Patient: Mira Mohan Unit #: [id number]: 1960 Dicatated By: Black Sr M.D.Date of Visit:Aug 14, 2019 Onc Med Follow-up/Prog Note Chief Complaint: Cervical cancer. History of Present Illness: This is a 59 year-old woman with adenocarcinoma of the endocervix, stage IB1 (T1b1, N1, M0). She has been in good general health. She was seen by Dr. Spence for a well woman check on 02/09/2019. She had an abnormal Pap smear with the finding of atypical glandular cells. She then underwent D&C on 03/09/2019. Pathology showed well-differentiated adenocarcinoma involving multiple sites including the endocervix, the ectocervix, and the endometrium. She was referred to Dr. Chen. She had further evaluation with staging PET/CT on 05/15/2019. That study showed significant metabolism in the endometrium consistent with the known malignancy. There were no other sites of metabolically active malignancy noted. MRI of the pelvis on 05/18/2019 showed foci or wall thickening involving the lower endometrial canal extending along the endocervical canal without definite invasion outside of the uterus or through the cervical stroma. An upper limits of normal size right external iliac lymph node also was noted. On 05/22/2019 she underwent robotic-assisted total laparoscopic radical hysterectomy, bilateral salpingo-oophorectomy, bilateral pelvic and periaortic sentinel lymphadenectomy, and laparoscopic omentectomy. Grossly there did appear to be suspicious sentinel lymph nodes but there was no gross evidence of disease outside the uterus. One small area in the peritoneum on the distal ileum mesentery was biopsied. Pathology showed well differentiated adenocarcinoma which appeared to be arising in the endocervix. There was no malignancy identified in the endometrium. The tumor measured 2.0 cm in maximum diameter. Stromal invasion was measured at 3 mm compared to a total cervical thickness of 13 mm. The ectocervical margin and the radial margin were uninvolved. There was evidence of lymphovascular invasion. The specimen contained a total of 8 lymph nodes, which included 4 sentinel lymph nodes. There was involvement in 1/1 right obturator sentinel lymph node. All other lymph nodes were negative. There was no malignancy identified in the distal ileum mesentery biopsy. Her pathologic staging was T1b1, N1. With the involved lymph node, she was recommended to undergo chemoradiation utilizing weekly cisplatin for the chemotherapy. Her other medical illnesses have been limited to hypertension and obstructive sleep apnea. She has not yet been evaluated for CPAP. She is a non-smoker. INTERIM HISTORY: She began week 1 cisplatin concurrently with radiation on 07/24/2019. She experienced some tinnitus and peripheral neuropathy symptoms during the first 24 hours after that treatment. She otherwise tolerated it well. She continued with her week 2 cisplatin on 07/31/2019 and with week 3 on 08/07/2019. She is seen for a scheduled visit. She has had a significant decline in her energy/activity tolerance over the last couple of weeks. She is still doing light work, though. Her ECOG score is 1. She has been having a little more nausea and a little more heartburn. Her tinnitus is about the same. Her neuropathy symptoms are otherwise less. Her appetite has been okay. She has not had fever or night sweats. She does report having some hot flashes. Her mouth sore has resolved. She does not complain of shortness of breath or cough. She has had some chest pain with the heartburn. She occasionally has loose stools. Bladder function has been okay. She reports having some pain in her right fourth toe. She has no other joint or bone pain. She does not complain of headache. She has very little dizziness. Medications: Biotin 1 Capsule (of 2500 mcg) Oral daily, hydroCHLOROthiazide 1 Tablet (of 25 mg) Oral daily, Lisinopril 1 Tablet (of 10 mg) Oral daily Allergies: Penicillins Review of Systems: Constitutional - Her energy level is low. She is able to do some light housework. Her appetite is good and weight is down a few pounds. No fever, chills, hot flashes, or night sweats. ECOG score is 1, ENMT - No sinus congestion/drainage. Her mouth sore has resolved. No sore throat or difficulty swallowing. She continues to have the tinnitus, Hematologic/Lymphatic - No abnormal bruising or bleeding, Respiratory - No shortness of breath. No cough. No pleuritic pain or hemoptysis, Cardiovascular - No angina pain. No palpitations, Gastrointestinal - She is having nausea, it seems to be at it worst 2 days after treatment. No vomiting. She is having heartburn. She is having loose stools which is well controlled with Imodium. No blood in the stool or black stools, Genitourinary (F) - No dysuria or hematuria. No urinary frequency. No urgency or incontinence, Musculoskeletal - She is having soreness to her arms from getting the treatments through IV's. She also has some pain to her right foot, this is new, Integumentary - She has some skin irritation in the area of her radiation, Neurologic - No headache or dizziness. Her neuropathy is not as bad, Psychiatric - No anxiety or depression. No insomnia. Vital Signs: Performed on Aug 14, 2019 10:10 Height - 65.00 in Weight - 204.0 lbs (LOW) BSA - 1.99 sq.m BMI - 33.95 (HIGH) Temperature - 98.0 F (LOW) Pulse - 67 /min Respiration - 20 /min BP - 116/72 mm(hg) O2 Sat - 92 % (LOW) Pain - 4 Physical Examination: Constitutional - She looks good generally, Eyes - Sclerae nonicteric. Conjunctivae clear, ENMT - There are no lesions noted in the oral cavity, Hematologic/Lymphatic - No cervical, clavicular, or axillary adenopathy, Respiratory - Lungs are clear with good air movement bilaterally, Cardiovascular - Heart rhythm is regular. There is no murmur, gallop, or rub noted, Abdomen - Soft. Liver and spleen are not enlarged. There is no abdominal mass or ascites noted and there is no inguinal adenopathy, Extremities - No edema, Neurologic - No focal neurologic deficits noted. Lab/Imaging: Test performed on Aug 14, 2019 09:22 Sodium 135 mmol/L Potassium 3.6 mmol/L Chloride 98 mmol/L CO2 22 mmol/L Anion Gap 18.6 BUN 13 mg/dL Creatinine 0.8 mg/dL Cr Clearance (Est) 114.2800 mL/min eGFR 73.7 mL/min Glucose 133 mg/dL Calcium 9.5 mg/dL Protein, Total 6.7 g/dL Albumin 4.1 g/dL Globulin 2.6 g/dL Bilirubin, Total 0.4 mg/dL ALT (SGPT) 16 U/L AST (SGOT) 12 U/L Alkaline Phosphatase 70 IU/L WBC 3.2 10 3/uL RBC 3.65 10 6/uL HGB 11.8 g/dL HCT 34.2 % MCV 93.7 fL MCH 32.3 pg MCHC 34.5 g/dL RDW 12.2 % Platelet Count 179 10 3/cmm MPV 9.4 fL Neutrophils 2.6 10 3/uL Lymphocytes 0.3 10 3/uL Monocytes 0.2 10 3/uL Eosinophils 0.1 10 3/uL Basophils 0.0 10 3/uL Neutrophil % 81.7 % Lymphocyte % 9.5 % Monocyte % 5.7 % Eosinophil % 1.9 % Basophils % 0.6 % Impression: 1. Patient with well differentiated adenocarcinoma of the endocervix, stage IB1 (T1b1, N1, M0). 2. She underwent robotic-assisted total laparoscopic radical hysterectomy, bilateral salpingo-oophorectomy, bilateral pelvic and periaortic sentinel lymphadenectomy, and laparoscopic omentectomy on 05/22/2019. Her other medical illnesses include: 3. Hypertension. 4. Obstructive sleep apnea. She is undergoing adjuvant chemoradiation utilizing weekly cisplatin for the chemotherapy. She began her week 1 cisplatin, concurrently with radiation on 07/24/2019. She had neuropathy symptoms and tinnitus the evening following her treatment, but the symptoms had resolved by the following day. Other side effects were mild. She continued with week 2 on 07/31/2019. She again experienced neuropathy symptoms lasting less than 24 hours. Her tinnitus worsened slightly. She was able to continue with week 3 cisplatin on 08/07/2019. Since then she has been more fatigued and she has been having more nausea and heartburn. Her tinnitus is stayed about the same. Her other neuropathy symptoms have improved somewhat. She is now mildly anemic and mildly neutropenic. Plan: She will proceed with her week 4 cisplatin at 40 mg/m??? by IV infusion, and she continues her daily radiation. She will be given a dexamethasone taper following this treatment and she also will start Protonix 40 mg daily. I will see her again in 1 week. Signed By: Black Sr M.D. <<Signature on File>>
--- NOTE | 2019-08-15 13:50 | ONCRAD TMN_ITS ---
Radiation Oncology Weekly Treatment Management Patient: Mira Mohan MR#: [id number] : 1960> Age: 59> Sex: Female Dictated by: Dr. Juan Baez Date of Service: 08/15/2019 Referring Physician(s) : Dr. Daljit Chen Primary Diagnosis: C53.0 - Malignant neoplasm of endocervix, Diagnosed 07/10/2019 (Active) Stage IB1, T1b1, N1, M0 Radiotherapy to date: Course: Pelvis 2019, Treatment Site: Pelvis 45Gy,Ref. ID: Plevis 45Gy, Energy: 15X, Dose/Fx (cGy): 180, #Fx: / , Dose Correction (cGy): 0, Total Dose (cGy): 3,060, Start Date: 07/24/2019, Elapsed Days: Current Complaints/Interval History: Current Medications: Aloxi, biotin, cISplatin, dexamethasone, dexamethasone Sodium Phosphate, emend, furosemide, hydroCHLOROthiazide, lisinopril, lORazepam, magnesium Sulfate, potassium Chloride, prochlorperazine Maleate, protonix. Allergies: Penicillins. Vital Signs: Performed on 08/15/2019 11:33 AM BMI - 34.547 kg/m2 (high), Height - 65.00 in, Weight - 207.6 lbs, Temperature - 98.2 f, Pulse - 61, Respiration - 18, O2 Sat - 100 %, Pain - 0 and BP - 135/ 82 mm(hg). Physical Exam: Appears stable, no skin erythema or desquamation. Performance Status: 1 - No physically strenuous activity, but ambulatory and able to carry out light or sedentary work (e.g. office work, light house work). (ECOG) Lab: None pending in Radiation Oncology. Test performed on 08/14/2019 9:22 AM WBC - 3.2 10 3/ul (low), RBC - 3.65 10 6/ul (low), HCT - 34.2 % (low), Lymphocytes - 0.3 10 3/ul (low), Sodium - 135 mmol/l (low), eGFR - 73.7 ml/min (low) and Glucose - 133 mg/dl (high). Imaging: No new diagnostic imaging was performed since the last weekly treatment visit. All radiation therapy related imaging (including but not limited to kV, MV, and CBCT generated images) was reviewed. Appropriate changes, if any, were made to assure accurate target localization. Impression/Plan: Tolerating treatment well with expected side effects. Continue treatment as planned. CPT: 43679 Signed by: Dr. Juan Baez>08/15/2019 1:50:07 PM <<Signature on File>>
[2019-08-21] MEDS: lidocaine 1% INJ 20 mL 5 ML IV ×2 (10:20→16:04)
[2019-08-21 10:30] LABS: Basophils % 0.3 %; Hematocrit 31.2 % (37.0-47.0); Hemoglobin 10.5 g/dL (11.5-15.3); Lymphocytes # 0.2 10^3/uL (0.8-4.8); Mean Corpuscular HGB Conc 33.7 g/dL (30.0-36.0); Mean Corpuscular Volume 95.1 fL (81-99); Mean Platelet Volume 9.3 fL (7.4-10.4); Monocytes # 0.2 10^3/uL (0.2-0.9); Neutrophils # 2.5 10^3/uL (1.8-7.7); Neutrophils % 84.4 %; Nucleated Red Blood Cells % 0 %; Platelet Count 153 10^3/cmm (130-400); Red Blood Count 3.28 10^6/uL (4.1-5.3); Red Cell Distribution Width 13.2 % (12.1-15.1)
[2019-08-21 11:41] LABS: Alanine Aminotransferase 13 U/L (0-33); Albumin Level 3.7 g/dL (3.5-5.2); Alkaline Phosphatase 54 IU/L (35-105); Anion Gap 13.8 (5-19); Aspartate Amino Transferase 10 U/L (0-32); Blood Urea Nitrogen 10 mg/dL (6-20); Calcium 9.1 mg/dL (8.5-10.5); Carbon Dioxide 26 mmol/L (22-29); Chloride 102 mmol/L (98-107); Globulin 2.2 g/dL (1.3-4.6); Glomerular Filtration Rate 85.9 mL/min (90-130); Glucose 109 mg/dL (65-115); Osmolality Calculated 283 mOsm/kg (285-295); Potassium 3.8 mmol/L (3.5-5.1); Sodium 138 mmol/L (136-145); Total Bilirubin 0.4 mg/dL (0.15-1.2); Total Protein 5.9 g/dL (6.6-8.7)
--- NOTE | 2019-08-21 11:55 | ONC FU_ITS ---
Dr. Sr Patient Follow-Up Note Patient: Mira Mohan Unit #: [id number]: 1960 Dicatated By: Black Sr M.D.Date of Visit:Aug 21, 2019 Onc Med Follow-up/Prog Note Chief Complaint: Cervical cancer. History of Present Illness: This is a 59 year-old woman with adenocarcinoma of the endocervix, stage IB1 (T1b1, N1, M0). She has been in good general health. She was seen by Dr. Spence for a well woman check on 02/09/2019. She had an abnormal Pap smear with the finding of atypical glandular cells. She then underwent D&C on 03/09/2019. Pathology showed well-differentiated adenocarcinoma involving multiple sites including the endocervix, the ectocervix, and the endometrium. She was referred to Dr. Chen. She had further evaluation with staging PET/CT on 05/15/2019. That study showed significant metabolism in the endometrium consistent with the known malignancy. There were no other sites of metabolically active malignancy noted. MRI of the pelvis on 05/18/2019 showed foci or wall thickening involving the lower endometrial canal extending along the endocervical canal without definite invasion outside of the uterus or through the cervical stroma. An upper limits of normal size right external iliac lymph node also was noted. On 05/22/2019 she underwent robotic-assisted total laparoscopic radical hysterectomy, bilateral salpingo-oophorectomy, bilateral pelvic and periaortic sentinel lymphadenectomy, and laparoscopic omentectomy. Grossly there did appear to be suspicious sentinel lymph nodes but there was no gross evidence of disease outside the uterus. One small area in the peritoneum on the distal ileum mesentery was biopsied. Pathology showed well differentiated adenocarcinoma which appeared to be arising in the endocervix. There was no malignancy identified in the endometrium. The tumor measured 2.0 cm in maximum diameter. Stromal invasion was measured at 3 mm compared to a total cervical thickness of 13 mm. The ectocervical margin and the radial margin were uninvolved. There was evidence of lymphovascular invasion. The specimen contained a total of 8 lymph nodes, which included 4 sentinel lymph nodes. There was involvement in 1/1 right obturator sentinel lymph node. All other lymph nodes were negative. There was no malignancy identified in the distal ileum mesentery biopsy. Her pathologic staging was T1b1, N1. With the involved lymph node, she was recommended to undergo chemoradiation utilizing weekly cisplatin for the chemotherapy. Her other medical illnesses have been limited to hypertension and obstructive sleep apnea. She has not yet been evaluated for CPAP. She is a non-smoker. INTERIM HISTORY: She began week 1 cisplatin concurrently with radiation on 07/24/2019. She experienced some tinnitus and peripheral neuropathy symptoms during the first 24 hours after that treatment. She otherwise tolerated it well. She continued with her week 2 cisplatin on 07/31/2019 and with week 3 on 08/07/2019. At week 4, on 08/14/2019, she was feeling more fatigued and she was also having more nausea and acid reflux symptoms. She was given her full dose of cisplatin, I did give her a dexamethasone taper, and I also had her start Protonix. She is seen for her scheduled visit. She has not been feeling very good. The nausea and acid reflux improved with Protonix, but her stools went from loose to constipation with a hard stool. She has had some bleeding, which she thinks is hemorrhoidal. She also has been having symptoms of urinary tract infection with dysuria, frequency, and urgency. She has had no hematuria. Her energy is getting lower all the time. She is now doing just very light housework. She has not had fever. She has had some chills and sweating. She has had no mouth sores. She does not complain of shortness of breath, cough, or chest pain. She complains that her hips are getting a little sore. She occasionally has a little lightheadedness. Her tinnitus is about the same. She has noticed a little more tingling in her feet. Medications: Biotin 1 Capsule (of 2500 mcg) Oral daily, hydroCHLOROthiazide 1 Tablet (of 25 mg) Oral daily, Lisinopril 1 Tablet (of 10 mg) Oral daily, Protonix 1 Tablet (of 40 mg) Tablet, enteric coated Oral daily Allergies: Penicillins Review of Systems: Constitutional - Her energy level is decreasing. She is able to do just very light housework. Her appetite is good and weight is down a few pounds. No fever, chills, hot flashes, or night sweats. ECOG score is 1, ENMT - No sinus congestion/drainage. No mouth sores. No sore throat or difficulty swallowing. Her tinnitus is unchanged, Hematologic/Lymphatic - No abnormal bruising or bleeding, Respiratory - No shortness of breath. No cough. No pleuritic pain or hemoptysis, Cardiovascular - No angina pain. No palpitations, Gastrointestinal - No nausea or vomiting. Her acid reflux is well managed with Protonix. She was having loose stools, but she then developed constipation with a hard stool. It has now become loose again, but she had some blood in the stool related to hemorrhoids. No black stools, Genitourinary (F) - She is having dysuria, frequency, and urgency. No hematuria. No incontinence. She is took AZO last night that helped with symptoms, Musculoskeletal - She has some new mild hip pain, Integumentary - No skin complications, Neurologic - No headache or dizziness. She is having a little more tingling in her feet, Psychiatric - No anxiety or depression. No insomnia. Vital Signs: Performed on Aug 21, 2019 11:02 Height - 65.00 in Weight - 204.6 lbs (LOW) BSA - 2.00 sq.m BMI - 34.05 (HIGH) Temperature - 98.3 F (LOW) Pulse - 70 /min Respiration - 22 /min BP - 137/82 mm(hg) O2 Sat - 96 % Pain - 6 Physical Examination: Constitutional - She looks pretty good generally, Eyes - Sclerae nonicteric. Conjunctivae clear, ENMT - There are no lesions noted in the oral cavity, Hematologic/Lymphatic - No cervical, clavicular, or axillary adenopathy, Respiratory - Lungs are clear with good air movement bilaterally, Cardiovascular - Heart rhythm is regular. There is no murmur, gallop, or rub noted, Abdomen - Soft. Liver and spleen are not enlarged. There is no abdominal mass or ascites noted and there is no inguinal adenopathy, Extremities - No edema, Neurologic - No focal neurologic deficits noted. Lab/Imaging: Test performed on Aug 21, 2019 10:14 Sodium 138 mmol/L Potassium 3.8 mmol/L Chloride 102 mmol/L CO2 26 mmol/L Anion Gap 13.8 BUN 10 mg/dL Creatinine 0.7 mg/dL Cr Clearance (Est) 130.6000 mL/min eGFR 85.9 mL/min Glucose 109 mg/dL Calcium 9.1 mg/dL Protein, Total 5.9 g/dL Albumin 3.7 g/dL Globulin 2.2 g/dL Bilirubin, Total 0.4 mg/dL ALT (SGPT) 13 U/L AST (SGOT) 10 U/L Alkaline Phosphatase 54 IU/L WBC 3.0 10 3/uL RBC 3.28 10 6/uL HGB 10.5 g/dL HCT 31.2 % MCV 95.1 fL MCH 32.0 pg MCHC 33.7 g/dL RDW 13.2 % Platelet Count 153 10 3/cmm MPV 9.3 fL Neutrophils 2.5 10 3/uL Lymphocytes 0.2 10 3/uL Monocytes 0.2 10 3/uL Eosinophils 0.0 10 3/uL Basophils 0.0 10 3/uL Neutrophil % 84.4 % Lymphocyte % 8.0 % Monocyte % 6.0 % Eosinophil % 1.0 % Basophils % 0.3 % Impression: 1. Patient with well differentiated adenocarcinoma of the endocervix, stage IB1 (T1b1, N1, M0). 2. She underwent robotic-assisted total laparoscopic radical hysterectomy, bilateral salpingo-oophorectomy, bilateral pelvic and periaortic sentinel lymphadenectomy, and laparoscopic omentectomy on 05/22/2019. Her other medical illnesses include: 3. Hypertension. 4. Obstructive sleep apnea. She is undergoing adjuvant chemoradiation utilizing weekly cisplatin for the chemotherapy. She began her week 1 cisplatin, concurrently with radiation on 07/24/2019. She had neuropathy symptoms and tinnitus the evening following her treatment, but the symptoms had resolved by the following day. Other side effects were mild. She continued with week 2 on 07/31/2019. She again experienced neuropathy symptoms lasting less than 24 hours. Her tinnitus worsened slightly. She was able to continue with week 3 cisplatin on 08/07/2019. As of her week 4 treatment, on 08/14/2019, she was getting more fatigued and she was also having a little more nausea and acid reflux. Those symptoms did improve with Protonix, but she then developed constipation with a hard stool. She has had some associated rectal bleeding, and she also has developed symptoms of urinary tract infection. She is getting more fatigued. Her neuropathy is slightly worse. She remains mildly anemic and she has mild neutropenia. Plan: She will proceed with her week 5 cisplatin at 40 mg/m??? by IV infusion, and she continues her daily radiation. She will continue the dexamethasone taper. She is just going to use the Protonix as needed. She will be given Cipro 250 mg twice daily for 5 days. She is due to complete her radiation on Wednesday of next week. If her symptoms continue to worsen or if her ANC drops below 2000, I will omit her week 6 cisplatin infusion. Signed By: Black Sr M.D. <<Signature on File>>
[2019-08-21] MEDS: FUROsemide 10 mg/mL SDV 2mL 20 MG IV (16:02)
--- NOTE | 2019-08-22 12:39 | ONCRAD TMN_ITS ---
Radiation Oncology Weekly Treatment Management Patient: Mira Mohan MR#: [id number] : 1960> Age: 59> Sex: Female Dictated by: Dr. Juan Baez Date of Service: 08/22/2019 Referring Physician(s) : Dr. Daljit Chen Primary Diagnosis: C53.0 - Malignant neoplasm of endocervix, Diagnosed 07/10/2019 (Active) Stage IB1, T1b1, N1, M0 Radiotherapy to date: Course: Pelvis 2019 Treatment Site: Pelvis 45Gy, Ref. ID: Pelvis 45Gy, Energy: 15X, Dose/Fx (cGy): 180, #Fx: , Dose Correction (cGy): 0, Total Dose (cGy): 3,960, Start Date: 07/24/2019, Elapsed Days: Current Complaints/Interval History: Constitutional Complains of severe fatigue. Complains of night sweats which occur every night and has hot flashes as well. Denies lack of appetite and fever. Integumentary Has slight irritation to the labia Gastrointestinal Complains of constipation over the weekend. Complains of intermittent diarrhea. Complains of heartburn / dyspepsia. Complains of hemorrhoids. Denies abdominal pain, nausea and vomiting. Genitourinary (F) Complains of dysuria and has started on antibiotic. Complains of nocturia 1-3 time/night. Denies frequency, urgency, vaginal discharge / bleeding and vaginal spotting. Current Medications: Aloxi, biotin, cipro, cISplatin, dexamethasone, dexamethasone Sodium Phosphate, emend, furosemide, hydroCHLOROthiazide, lisinopril, magnesium Sulfate, potassium Chloride, prochlorperazine Maleate, protonix, protonix. Allergies: Penicillins. Vital Signs: Performed on 08/22/2019 10:54 AM BMI - 34.513 kg/m2 (high), Height - 65.00 in, Weight - 207.4 lbs, Temperature - 97.9 f, Pulse - 66, Respiration - 18, O2 Sat - 99 %, Pain - 4 and BP - 131/ 86 mm(hg). Physical Exam: Appears stable, no skin erythema or desquamation. Performance Status: 2 - Ambulatory/capable of all self-care, unable to perform any work activities. Up and about more than 50% of waking hours. (ECOG) Lab: None pending in Radiation Oncology. Test performed on 08/21/2019 10:14 AM WBC - 3.0 10 3/ul (low), RBC - 3.28 10 6/ul (low), HGB - 10.5 g/dl (low), HCT - 31.2 % (low), Lymphocytes - 0.2 10 3/ul (low), eGFR - 85.9 ml/min (low) and Protein, Total - 5.9 g/dl (low). Imaging: No new diagnostic imaging was performed since the last weekly treatment visit. All radiation therapy related imaging (including but not limited to kV, MV, and CBCT generated images) was reviewed. Appropriate changes, if any, were made to assure accurate target localization. Impression/Plan: Tolerating treatment well with expected side effects. Continue treatment as planned. Discussed the use of analgesics and AZO. Pt does not want to take narcotic analgesics because of the way it makes her feel. CPT: 62611 Signed by: Dr. Juan Baez>08/22/2019 12:38:39 PM <<Signature on File>>
--- NOTE | 2019-08-30 15:41 | ONCRAD TMN_ITS ---
Radiation Oncology Weekly Treatment Management / Treatment Summary Patient: Mira Mohan MR#: [id number] : 1960> Age: 59> Sex: Female Dictated by: Dr. Hay Grey Date of Service: 08/30/2019 Referring Physician(s) : Dr. 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 ID: [id number], Energy: 15X, Dose/Fx (cGy): 180, #Fx: 25 / 25, Dose Correction (cGy): 0, Total Dose (cGy): 4,500, Start Date: 07/24/2019, End Date: 08/25/2019, Elapsed Days: 32 Treatment Site: [id number], Ref. ID: [id number], Energy: 6X, Dose/Fx (cGy): 180, #Fx: 3 / 3, Dose Correction (cGy): 0, Total Dose (cGy): 540, Start Date: 08/28/2019, End Date: 08/30/2019, Elapsed Days: 2 Current Complaints/Interval History Last day of external beam treatment today. Some urinary burning. When Azo used it just made her sick to her stomach. No vag DC. Some nausea with chemo. Some redness in inguinal regions treated with aquaphor. Scheduled for 3 to 5 fx of brachytherapy in [place] beginning 09/12/2019 Constitutional Complains of a poor appetite. Complains of severe fatigue. Denies fever and night sweats but has hot flashes. Integumentary Has redness to the both inner legs. Gastrointestinal Complains of abdominal pain located in the lower abdomen. Complains of intermittent constipation. Complains of intermittent diarrhea. Complains of heartburn / dyspepsia. Complains of hemorrhoids. Complains of nausea. Complains of vomiting. Genitourinary (F) Complains of dysuria and nocturia gets up 2 to 3 times per night. Denies frequency, urgency, vaginal discharge / bleeding and vaginal spotting. Current Medications: Aloxi, biotin, cipro, cISplatin, dexamethasone, dexamethasone Sodium Phosphate, emend, furosemide, hydroCHLOROthiazide, lisinopril, magnesium Sulfate, potassium Chloride, prochlorperazine Maleate, protonix, protonix. Allergies: Penicillins. Vital Signs: Performed on 08/30/2019 11:28 AM BMI - 33.781 kg/m2 (high), Height - 65.00 in, Weight - 203.0 lbs, Temperature - 99.3 f, Pulse - 95, Respiration - 16, O2 Sat - 96 %, Pain - 0 and BP - 125/ 85 mm(hg). Physical Exam: Appears stable, no skin erythema or desquamation. Performance Status: 2 - Ambulatory/capable of all self-care, unable to perform any work activities. Up and about more than 50% of waking hours. (ECOG) Lab: None pending in Radiation Oncology. Test performed on 08/21/2019 10:14 AM WBC - 3.0 10 3/ul (low), RBC - 3.28 10 6/ul (low), HGB - 10.5 g/dl (low), HCT - 31.2 % (low), Lymphocytes - 0.2 10 3/ul (low), eGFR - 85.9 ml/min (low) and Protein, Total - 5.9 g/dl (low). Imaging: No new diagnostic imaging was performed since the last weekly treatment visit. All radiation therapy related imaging (including but not limited to kV, MV, and CBCT generated images) was reviewed. Appropriate changes, if any, were made to assure accurate target localization. Impression/Plan: Tolerating treatment well with expected side effects. External beam treatment completed. Brachytherapy scheduled as above beginning 09/12/2019. Plan on 3 to 5 fx total. Tentative FU here 09/28/2019. CPT: 13617 Signed by: Dr. Hay Grey>08/30/2019 3:39:50 PM <<Signature on File>>
[2019-09-04 14:21] LABS: Basophils % 0.5 %; Eosinophils % 1.4 %; Hematocrit 29.1 % (37.0-47.0); Lymphocytes # 0.3 10^3/uL (0.8-4.8); Lymphocytes % 11.9 %; Mean Corpuscular HGB Conc 34.4 g/dL (30.0-36.0); Mean Corpuscular Hemoglobin 32.9 pg (28.0-34.0); Mean Corpuscular Volume 95.7 fL (81-99); Mean Platelet Volume 9.4 fL (7.4-10.4); Monocytes # 0.1 10^3/uL (0.2-0.9); Monocytes % 6.2 %; Neutrophils # 1.7 10^3/uL (1.8-7.7); Neutrophils % 79.5 %; Nucleated Red Blood Cells % 0 %; Platelet Count 154 10^3/cmm (130-400); Red Blood Count 3.04 10^6/uL (4.1-5.3); Red Cell Distribution Width 16.5 % (12.1-15.1); White Blood Count 2.1 10^3/uL (4.0-10.0)
[2019-09-04 14:47] LABS: Alanine Aminotransferase 16 U/L (0-33); Albumin Level 4.3 g/dL (3.5-5.2); Alkaline Phosphatase 65 IU/L (35-105); Anion Gap 16.5 (5-19); Aspartate Amino Transferase 15 U/L (0-32); Blood Urea Nitrogen 16 mg/dL (6-20); Calcium 9.7 mg/dL (8.5-10.5); Carbon Dioxide 28 mmol/L (22-29); Chloride 95 mmol/L (98-107); Globulin 2.4 g/dL (1.3-4.6); Glomerular Filtration Rate 73.7 mL/min (90-130); Glucose 153 mg/dL (65-115); Osmolality Calculated 281 mOsm/kg (285-295); Potassium 3.5 mmol/L (3.5-5.1); Sodium 136 mmol/L (136-145); Total Bilirubin 0.4 mg/dL (0.15-1.2); Total Protein 6.7 g/dL (6.6-8.7)
[2019-09-04 16:12] LABS: Vitamin B12 557 pg/mL (232-1245)
--- NOTE | 2019-09-05 07:19 | ONC FU_ITS ---
Dr. Sr Patient Follow-Up Note Patient: Mira Mohan Unit #: [id number]: 1960 Dicatated By: Black Sr M.D.Date of Visit:Sep 04, 2019 Onc Med Follow-up/Prog Note Chief Complaint: Cervical cancer. History of Present Illness: This is a 59 year-old woman with adenocarcinoma of the endocervix, stage IB1 (T1b1, N1, M0). She has been in good general health. She was seen by Dr. Spence for a well woman check on 02/09/2019. She had an abnormal Pap smear with the finding of atypical glandular cells. She then underwent D&C on 03/09/2019. Pathology showed well-differentiated adenocarcinoma involving multiple sites including the endocervix, the ectocervix, and the endometrium. She was referred to Dr. Chen. She had further evaluation with staging PET/CT on 05/15/2019. That study showed significant metabolism in the endometrium consistent with the known malignancy. There were no other sites of metabolically active malignancy noted. MRI of the pelvis on 05/18/2019 showed foci or wall thickening involving the lower endometrial canal extending along the endocervical canal without definite invasion outside of the uterus or through the cervical stroma. An upper limits of normal size right external iliac lymph node also was noted. On 05/22/2019 she underwent robotic-assisted total laparoscopic radical hysterectomy, bilateral salpingo-oophorectomy, bilateral pelvic and periaortic sentinel lymphadenectomy, and laparoscopic omentectomy. Grossly there did appear to be suspicious sentinel lymph nodes but there was no gross evidence of disease outside the uterus. One small area in the peritoneum on the distal ileum mesentery was biopsied. Pathology showed well differentiated adenocarcinoma which appeared to be arising in the endocervix. There was no malignancy identified in the endometrium. The tumor measured 2.0 cm in maximum diameter. Stromal invasion was measured at 3 mm compared to a total cervical thickness of 13 mm. The ectocervical margin and the radial margin were uninvolved. There was evidence of lymphovascular invasion. The specimen contained a total of 8 lymph nodes, which included 4 sentinel lymph nodes. There was involvement in 1/1 right obturator sentinel lymph node. All other lymph nodes were negative. There was no malignancy identified in the distal ileum mesentery biopsy. Her pathologic staging was T1b1, N1. With the involved lymph node, she was recommended to undergo chemoradiation utilizing weekly cisplatin for the chemotherapy. Her other medical illnesses have been limited to hypertension and obstructive sleep apnea. She has not yet been evaluated for CPAP. She is a non-smoker. INTERIM HISTORY: She began week 1 cisplatin concurrently with radiation on 07/24/2019. She experienced some tinnitus and peripheral neuropathy symptoms during the first 24 hours after that treatment. She otherwise tolerated it well. She continued with her week 2 cisplatin on 07/31/2019 and with week 3 on 08/07/2019. At week 4, on 08/14/2019, she was feeling more fatigued and she was also having more nausea and acid reflux symptoms. She was given her full dose of cisplatin, but I did give her a dexamethasone taper, and I also had her start Protonix. She was able to continue with her week 5 cisplatin on 08/21/2019, but I did opt to omit her week 6 treatment due to declining performance status and blood counts. She completed radiation on 08/30/2019, total dose 5040 cGy. She is seen for a scheduled visit. She is still feeling very weak generally. In fact, she says this is the weakest she has ever been. She has very limited activity. ECOG score is 3. Her appetite is nonexistent. She also has altered taste sensation with occasional gagging. Her weight is down 6 pounds since her last visit. She has not had fever. She has had chills intermittently and some sweating. She has occasional hot flashes. She has had no mouth sores. She does not complain of shortness of breath or cough. She has not been having chest pain, but she does sometimes feel her heart pounding. She otherwise has not been having nausea. She still has loose stools, but generally just once a day. It is being controlled with Imodium, and it is getting better. She still has some burning with urination. She has some soreness in her hips and down her legs. She continues to have numbness/tingling in her feet. She has just occasional headache. She has having some orthostatic lightheadedness. Her tinnitus is about the same. Medications: Biotin 1 Capsule (of 2500 mcg) Oral daily, hydroCHLOROthiazide 1 Tablet (of 25 mg) Oral daily, Lisinopril 1 Tablet (of 10 mg) Oral daily, Protonix 1 Tablet (of 40 mg) Tablet, enteric coated Oral daily Allergies: Penicillins Review of Systems: Constitutional - She is very weak. She is able to complete small simple tasks then she has to sleep for a few hours before she is able to do anything. Her appetite is non-exsistant and weight is down a few pounds from last visit. No fever. She has chills during the day. She has occasional hot flashes with sweating. ECOG score is 3, ENMT - No sinus congestion/drainage. No mouth sores. No sore throat or difficulty swallowing.She, Hematologic/Lymphatic - No abnormal bruising or bleeding, Respiratory - No shortness of breath. No cough. No pleuritic pain or hemoptysis, Cardiovascular - No angina pain. No palpitations, Gastrointestinal - No nausea or vomiting, but her taste is altered and she sometimes has gagging. No heartburn or acid reflux. She is having some diarrhea but it is improving with Imodium. No constipation. No blood in the stool or black stools, Genitourinary (F) - She is having dysuria. No hematuria. No urinary frequency. No urgency or incontinence, Musculoskeletal - No joint or bone pain, Integumentary - No skin complications, Neurologic - No headache. She is having episodes of dizziness. She has numbness and tingling in her feet, Psychiatric - No anxiety or depression. No insomnia. Vital Signs: Performed on Sep 04, 2019 15:09 Height - 65.00 in Weight - 198.8 lbs (LOW) BSA - 1.97 sq.m BMI - 33.08 (HIGH) Temperature - 98.5 F Pulse - 81 /min Respiration - 20 /min BP - 118/69 mm(hg) O2 Sat - 96 % Pain - 0 Physical Examination: Constitutional - She appears generally weak, Eyes - Sclerae nonicteric. Conjunctivae clear, ENMT - There are no lesions noted in the oral cavity, Hematologic/Lymphatic - No cervical, clavicular, or axillary adenopathy, Respiratory - Lungs are clear with good air movement bilaterally, Cardiovascular - Heart rhythm is regular. There is no murmur, gallop, or rub noted, Abdomen - Soft. Liver and spleen are not enlarged. There is no abdominal mass or ascites noted and there is no inguinal adenopathy, Extremities - No edema, Neurologic - No focal neurologic deficits noted. Lab/Imaging: Test performed on Sep 04, 2019 14:10 Sodium 136 mmol/L TSH 1.10 uIU/mL Vitamin B12 557 pg/mL Potassium 3.5 mmol/L Chloride 95 mmol/L CO2 28 mmol/L Anion Gap 16.5 BUN 16 mg/dL Creatinine 0.8 mg/dL Cr Clearance (Est) 114.2800 mL/min eGFR 73.7 mL/min Glucose 153 mg/dL Calcium 9.7 mg/dL Protein, Total 6.7 g/dL Albumin 4.3 g/dL Globulin 2.4 g/dL Bilirubin, Total 0.4 mg/dL ALT (SGPT) 16 U/L AST (SGOT) 15 U/L Alkaline Phosphatase 65 IU/L WBC 2.1 10 3/uL RBC 3.04 10 6/uL HGB 10.0 g/dL HCT 29.1 % MCV 95.7 fL MCH 32.9 pg MCHC 34.4 g/dL RDW 16.5 % Platelet Count 154 10 3/cmm MPV 9.4 fL Neutrophils 1.7 10 3/uL Lymphocytes 0.3 10 3/uL Monocytes 0.1 10 3/uL Eosinophils 0.0 10 3/uL Basophils 0.0 10 3/uL Neutrophil % 79.5 % Lymphocyte % 11.9 % Monocyte % 6.2 % Eosinophil % 1.4 % Basophils % 0.5 % Impression: 1. Patient with well differentiated adenocarcinoma of the endocervix, stage IB1 (T1b1, N1, M0). 2. She underwent robotic-assisted total laparoscopic radical hysterectomy, bilateral salpingo-oophorectomy, bilateral pelvic and periaortic sentinel lymphadenectomy, and laparoscopic omentectomy on 05/22/2019. Her other medical illnesses include: 3. Hypertension. 4. Obstructive sleep apnea. She is undergoing adjuvant chemoradiation utilizing weekly cisplatin for the chemotherapy. She began her week 1 cisplatin, concurrently with radiation on 07/24/2019. She had neuropathy symptoms and tinnitus the evening following her treatment, but the symptoms had resolved by the following day. Other side effects were mild. She continued with week 2 on 07/31/2019. She again experienced neuropathy symptoms lasting less than 24 hours. Her tinnitus worsened slightly. She was able to continue with week 3 cisplatin on 08/07/2019, with week 4 on 08/14/2019, and with week 5 on 08/21/2019. Her week 6 treatment was held due to declining performance status and blood counts. She completed radiation on 08/30/2019, total dose 5040 cGy. Since completing her treatment, there has been further decline in her performance status and in her blood counts. She also continues to have significant neuropathy. This appears to be all treatment related, and recovery is expected. Plan: She has completed her chemoradiation. She is due now for her brachytherapy. It is tentatively scheduled to be done on 12 September, but given the significant decline in her blood counts and her performance status, I think that we will have to be delayed. She will be scheduled for repeat lab studies and a follow-up visit in 2 weeks. In the meantime, she is advised to stop both the lisinopril and the hydrochlorothiazide. Signed By: Black Sr M.D. <<Signature on File>>
== END 2019-09-07 23:59 | disposition home or self-care (01) ==
LOC: ONCMED 06:43
PROVIDERS: Family Provider Family Medicine; PCP Family Medicine; Visit Provider Internal Medicine Medical Oncology
DX: Z51.0 Encounter for antineoplastic radiation therapy (principal); Z51.11 Encounter for antineoplastic chemotherapy; C53.0 Malignant neoplasm of endocervix; D64.9 Anemia, unspecified; R53.83 Other fatigue; D70.1 Agranulocytosis secondary to cancer chemotherapy; H93.19 Tinnitus, unspecified ear; G62.0 Drug-induced polyneuropathy; K21.9 Gastro-esophageal reflux disease without esophagitis; T45.1X5A Adverse effect of antineoplastic and immunosuppressive drugs, initial encounter; R30.0 Dysuria; R35.0 Frequency of micturition; I10 Essential (primary) hypertension; G47.33 Obstructive sleep apnea (adult) (pediatric); Z90.710 Acquired absence of both cervix and uterus; Z90.722 Acquired absence of ovaries, bilateral; Z79.899 Other long term (current) drug therapy; Z79.52 Long term (current) use of systemic steroids
CPT/HCPCS: 36415; 77300; 77301; 77336; 77338; 77386; 77387; 77412; 80053; 82607; 84443; 85025; 96366; 96367; 96375; 96413; 96415; 99214; J1100; J1453; J1940; J2001; J2469; J3475; J3480; J7030; J7040; J7050; J9060

== ENCOUNTER 2019-09-28 06:56 | Outpatient (RCR) | payer BC, SELFPAY ==
[2019-09-18 09:24] LABS: Eosinophils % 0.8 %; Hemoglobin 8.7 g/dL (11.5-15.3); Lymphocytes # 0.2 10^3/uL (0.8-4.8); Lymphocytes % 17.3 %; Mean Corpuscular HGB Conc 32.2 g/dL (30.0-36.0); Mean Corpuscular Hemoglobin 33.3 pg (28.0-34.0); Mean Corpuscular Volume 103.4 fL (81-99); Mean Platelet Volume 9.8 fL (7.4-10.4); Monocytes # 0.2 10^3/uL (0.2-0.9); Monocytes % 13.5 %; Neutrophils # 0.9 10^3/uL (1.8-7.7); Neutrophils % 66.9 %; Nucleated Red Blood Cells % 0 %; Platelet Count 233 10^3/cmm (130-400); Red Blood Count 2.61 10^6/uL (4.1-5.3); Red Cell Distribution Width 19.9 % (12.1-15.1); White Blood Count 1.3 10^3/uL (4.0-10.0)
[2019-09-18 09:38] LABS: Alanine Aminotransferase 25 U/L (0-33); Albumin Level 4.1 g/dL (3.5-5.2); Alkaline Phosphatase 50 IU/L (35-105); Anion Gap 15.8 (5-19); Aspartate Amino Transferase 18 U/L (0-32); Blood Urea Nitrogen 9 mg/dL (6-20); Calcium 9.1 mg/dL (8.5-10.5); Carbon Dioxide 24 mmol/L (22-29); Chloride 104 mmol/L (98-107); Globulin 1.8 g/dL (1.3-4.6); Glomerular Filtration Rate 102.7 mL/min (90-130); Glucose 120 mg/dL (65-115); Osmolality Calculated 287 mOsm/kg (285-295); Potassium 3.8 mmol/L (3.5-5.1); Sodium 140 mmol/L (136-145); Total Bilirubin 0.4 mg/dL (0.15-1.2); Total Protein 5.9 g/dL (6.6-8.7)
--- NOTE | 2019-09-18 11:57 | ONC FU_ITS ---
Dr. Sr Patient Follow-Up Note Patient: Mira Mohan Unit #: [id number]: 1960 Dicatated By: Black Sr M.D.Date of Visit:September 18, 2019 Onc Med Follow-up/Prog Note Chief Complaint: Cervical cancer. History of Present Illness: This is a 59 year-old woman with adenocarcinoma of the endocervix, stage IB1 (T1b1, N1, M0). She has been in good general health. She was seen by Dr. Spence for a well woman check on 02/09/2019. She had an abnormal Pap smear with the finding of atypical glandular cells. She then underwent D&C on 03/09/2019. Pathology showed well-differentiated adenocarcinoma involving multiple sites including the endocervix, the ectocervix, and the endometrium. She was referred to Dr. Chen. She had further evaluation with staging PET/CT on 05/15/2019. That study showed significant metabolism in the endometrium consistent with the known malignancy. There were no other sites of metabolically active malignancy noted. MRI of the pelvis on 05/18/2019 showed foci or wall thickening involving the lower endometrial canal extending along the endocervical canal without definite invasion outside of the uterus or through the cervical stroma. An upper limits of normal size right external iliac lymph node also was noted. On 05/22/2019 she underwent robotic-assisted total laparoscopic radical hysterectomy, bilateral salpingo-oophorectomy, bilateral pelvic and periaortic sentinel lymphadenectomy, and laparoscopic omentectomy. Grossly there did appear to be suspicious sentinel lymph nodes but there was no gross evidence of disease outside the uterus. One small area in the peritoneum on the distal ileum mesentery was biopsied. Pathology showed well differentiated adenocarcinoma which appeared to be arising in the endocervix. There was no malignancy identified in the endometrium. The tumor measured 2.0 cm in maximum diameter. Stromal invasion was measured at 3 mm compared to a total cervical thickness of 13 mm. The ectocervical margin and the radial margin were uninvolved. There was evidence of lymphovascular invasion. The specimen contained a total of 8 lymph nodes, which included 4 sentinel lymph nodes. There was involvement in 1/1 right obturator sentinel lymph node. All other lymph nodes were negative. There was no malignancy identified in the distal ileum mesentery biopsy. Her pathologic staging was T1b1, N1. With the involved lymph node, she was recommended to undergo chemoradiation utilizing weekly cisplatin for the chemotherapy. Her other medical illnesses have been limited to hypertension and obstructive sleep apnea. She has not yet been evaluated for CPAP. She is a non-smoker. INTERIM HISTORY: She began week 1 cisplatin concurrently with radiation on 07/24/2019. She experienced some tinnitus and peripheral neuropathy symptoms during the first 24 hours after that treatment. She otherwise tolerated it well. She continued with her week 2 cisplatin on 07/31/2019 and with week 3 on 08/07/2019. At week 4, on 08/14/2019, she was feeling more fatigued and she was also having more nausea and acid reflux symptoms. She was given her full dose of cisplatin, but I did give her a dexamethasone taper, and I also had her start Protonix. She was able to continue with her week 5 cisplatin on 08/21/2019, but I did opt to omit her week 6 treatment due to declining performance status and blood counts. She completed radiation on 08/30/2019, total dose 5040 cGy. She is seen for a scheduled visit. She is feeling a little better than she had been. She has been able to return to work part-time. Her ECOG score is 1. Her appetite is still nonexistent, but she is eating. She has not had fever. She does report having hot flashes and sweating. She has restarted lisinopril because her blood pressure went back up, but she is taking it at a reduced dosage. She is still off the hydrochlorothiazide, and she has developed some mild, generalized swelling. Last week on Wednesday night and she had cough and some nausea/vomiting. The cough is better now. She is not having shortness of breath. She has had some chest discomfort, attributable to acid reflux. She is not having nausea now, but her stomach feels full. She is still having loose stools intermittently, sometimes with urgency. Her urination is also sometimes urgent, but she is not having burning with it now. She is having pain in her left hip and left leg. She just occasionally has headache. She is not having as much dizziness/lightheadedness. She does have neuropathy in her feet and occasionally in her hands. Medications: Lisinopril 1 Tablet (of 5 mg) Oral daily Allergies: Penicillins Review of Systems: Constitutional - She is generally feeling better. Her energy is low but improving. She was able to return to work last week. Her appetite is non-exsistant, but she is able to eat. Her weight is up 10 pounds. No fever or chills. She is having hot flashes with sweating. ECOG score is 1, ENMT - No sinus congestion/drainage. No mouth sores. No sore throat or difficulty swallowing, Hematologic/Lymphatic - No abnormal bruising or bleeding, Respiratory - No shortness of breath. She had a cough. No pleuritic pain or hemoptysis, Cardiovascular - No angina pain. No palpitations, Gastrointestinal - She had nausea/vomiting with the cough on Wednesday night and . Her stomach still feels full. She is having some acid reflux. She is having frequent loose stools. No constipation. No blood in the stool or black stools, Genitourinary (F) - Her dysuria is resolved. No hematuria. No urinary frequency. She has some urgency. No incontinence, Musculoskeletal - She is having some pain in her left hip and leg, Integumentary - She has some generalized swelling, Neurologic - She has occasional headache. Her dizziness is improved. She continues to have neuropathy in her feet and some in her hands, Psychiatric - No anxiety or depression. No insomnia. Vital Signs: Performed on September 18, 2019 10:09 Height - 65.00 in Weight - 208.0 lbs (HIGH) BSA - 2.01 sq.m BMI - 34.61 (HIGH) Temperature - 98.6 F Pulse - 69 /min Respiration - 22 /min BP - 153/87 mm(hg) (HIGH) O2 Sat - 97 % Pain - 0 Physical Examination: Constitutional - She appears somewhat weak generally, Eyes - Sclerae nonicteric. Conjunctivae clear, ENMT - There are no lesions noted in the oral cavity, Hematologic/Lymphatic - No cervical, clavicular, or axillary adenopathy, Respiratory - Lungs are clear with good air movement bilaterally, Cardiovascular - Heart rhythm is regular. There is no murmur, gallop, or rub noted, Abdomen - Soft. Liver and spleen are not enlarged. There is no abdominal mass or ascites noted and there is no inguinal adenopathy, Extremities - She has mild edema in the face and in the hands and lower extremities, Neurologic - No focal neurologic deficits noted. Lab/Imaging: Test performed on September 18, 2019 08:50 Sodium 140 mmol/L Potassium 3.8 mmol/L Chloride 104 mmol/L CO2 24 mmol/L Anion Gap 15.8 BUN 9 mg/dL Creatinine 0.6 mg/dL Cr Clearance (Est) 152.3700 mL/min eGFR 102.7 mL/min Glucose 120 mg/dL Calcium 9.1 mg/dL Protein, Total 5.9 g/dL Albumin 4.1 g/dL Globulin 1.8 g/dL Bilirubin, Total 0.4 mg/dL ALT (SGPT) 25 U/L AST (SGOT) 18 U/L Alkaline Phosphatase 50 IU/L WBC 1.3 10 3/uL RBC 2.61 10 6/uL HGB 8.7 g/dL HCT 27.0 % MCV 103.4 fL MCH 33.3 pg MCHC 32.2 g/dL RDW 19.9 % Platelet Count 233 10 3/cmm MPV 9.8 fL Neutrophils 0.9 10 3/uL Lymphocytes 0.2 10 3/uL Monocytes 0.2 10 3/uL Eosinophils 0.0 10 3/uL Basophils 0.0 10 3/uL Neutrophil % 66.9 % Lymphocyte % 17.3 % Monocyte % 13.5 % Eosinophil % 0.8 % Basophils % 0.0 % Impression: 1. Patient with well differentiated adenocarcinoma of the endocervix, stage IB1 (T1b1, N1, M0). 2. She underwent robotic-assisted total laparoscopic radical hysterectomy, bilateral salpingo-oophorectomy, bilateral pelvic and periaortic sentinel lymphadenectomy, and laparoscopic omentectomy on 05/22/2019. Her other medical illnesses include: 3. Hypertension. 4. Obstructive sleep apnea. She is undergoing adjuvant chemoradiation utilizing weekly cisplatin for the chemotherapy. She began her week 1 cisplatin, concurrently with radiation on 07/24/2019. She had neuropathy symptoms and tinnitus the evening following her treatment, but the symptoms had resolved by the following day. Other side effects were mild. She continued with week 2 on 07/31/2019. She again experienced neuropathy symptoms lasting less than 24 hours. Her tinnitus worsened slightly. She was able to continue with week 3 cisplatin on 08/07/2019, with week 4 on 08/14/2019, and with week 5 on 08/21/2019. Her week 6 treatment was held due to declining performance status and blood counts. She completed radiation on 08/30/2019, total dose 5040 cGy. She had shown further decline in her performance status after completing her treatment. She is beginning to show some improvement, though she continues to have significant fatigue and anorexia, and she still has moderately severe anemia and neutropenia. She also now has developed some mild, generalized swelling. Plan: She will be seeing the radiation oncologist this week regarding her brachytherapy. For now she will continue the lisinopril at 5 mg daily. She will restart hydrochlorothiazide at her discretion, but with the dosage reduced to half tablet. I will see her again in 1 month, or sooner as needed. Signed By: Black Sr M.D. <<Signature on File>>
--- NOTE | 2019-09-28 12:51 | ONCRAD EPV_ITS ---
Radiation Oncology Established Patient Visit Patient: Dimple MR#: [id number] : 1960> Age: 59> Sex: Female> Dictated by: Dr. Hay Grey Date of Service: 09/28/2019 Referring Physician(s) : Dr. 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 ID: [id number], Energy: 15X, Dose/Fx (cGy): 180, Fx: 25 / 25, Dose Correction (cGy): 0, Total Dose (cGy): 4,500, Start Date: 07/24/2019, End Date: 08/25/2019, Elapsed Days: 32 Treatment Site: [id number], Ref. ID: [id number], Energy: 6X, Dose/Fx (cGy): 180, #Fx: 3 / 3, Dose Correction (cGy): 0, Total Dose (cGy): 540, Start Date: 08/28/2019, End Date: 08/30/2019, Elapsed Days: 2 Chief Complaint / History of Present Illness: Since completing her pelvic external beam radiation she has had her first of 3 planned [id number]-xoty brachy therapy treatments for her primary cervical carcinoma. Following this she has had only fatigue without other symptoms. Urinary function is normal bowel function is normal she has no vaginal discharge or bleeding. She notes some left-sided hip pain present intermittently radiating into her thigh. This is treated only with Tylenol. 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 She is scheduled see Dr. Sr on October 19, 2019. She will also return to radiation oncology team at [facility] for her last 2 brachy therapy insertions. Current Medications: Aloxi, cISplatin, dexamethasone, dexamethasone Sodium Phosphate, emend, furosemide, hydroCHLOROthiazide, lisinopril, magnesium Sulfate, potassium Chloride, prochlorperazine Maleate, protonix. Allergies: Penicillins. Current Complaints / Review of Systems: Constitutional - Complains of lack of appetite off and on. Complains of moderate fatigue. Denies fever and night sweats. Eyes - Denies blurred vision. ENMT - Complains of mouth dryness occasionally, altered taste and tinnitus. Denies dysphagia, ear pain and stomatitis. Neck - Denies neck pain. Integumentary - Denies rash. Breasts - Denies pain. Cardiovascular - Complains of occasional palpatiations. Denies arrhythmias, chest pain and edema. Respiratory - Denies cough, dyspnea and wheezing. Gastrointestinal - Complains of heartburn / dyspepsia, hemorrhoids and satiety. Denies abdominal pain, constipation, diarrhea, melena / GI bleeding, nausea and vomiting. Genitourinary (F) - Complains of nocturia gets up about 1 time per night and urgency occasionally. Denies dysuria, frequency, hematuria, vaginal discharge / bleeding and vaginal spotting. Musculoskeletal - Complains of joint pain both hips but left one is worse and radiates down the leg. Complains of generalized muscle weakness. Denies bone pain. Neurologic - Complains of mild headaches occasionally. Denies dizziness and insomnia. Endocrine - Complains of occasional hot flashes. Denies diabetes and thyroid disease. Hematologic/Lymphatic - Denies tender or enlarged lymph nodes.. Vital Signs: Performed on 09/28/2019 10:28 AM BMI - 33.848 kg/m2 (high), Height - 65.00 in, Weight - 203.4 lbs, Temperature - 98.2 f, Pulse - 80, Respiration - 20, O2 Sat - 97 %, Pain - 2 and BP - 125/ 77 mm(hg). Physical Exam: Alert cooperative pleasant woman in no acute distress. Lymph nodes she had no palpable cervical or supraclavicular adenopathy. She did have tenderness along the left greater trochanteric region. She had no left groin tenderness. Extremities revealed no pedal edema. Gait was normal with no antalgia. Performance Status: 1 - No physically strenuous activity, but ambulatory and able to carry out light or sedentary work (e.g. office work, light house work). (ECOG) Lab: None pending. Test performed on 09/18/2019 8:50 AM WBC - 1.3 10 3/ul (low), RBC - 2.61 10 6/ul (low), HGB - 8.7 g/dl (low), HCT - 27.0 % (low), MCV - 103.4 fl (high), RDW - 19.9 % (high), Neutrophils - 0.9 10 3/ul (low), Lymphocytes - 0.2 10 3/ul (low), Cr Clearance (Est) - 152.3700 ml/min (high), Glucose - 120 mg/dl (high) and Protein, Total - 5.9 g/dl (low). Pathology: Primary, c53.0 - malignant neoplasm of endocervix, Diagnosed 07/10/2019 (active) stage ib1, t1b1, n1, m0. Impression: In summary my impression is that of primary endocervical carcinoma she is doing well with brachii therapy. Her left hip pain is likely arthritic or or bursitis related pain. At this time I did not recommend additional imaging for this. She will return to [facility] for completion of brachy therapy. I anticipate her follow-up pelvic examinations will be done by Dr. Daljit Chen in the future. Signed by: 09/28/2019 12:49:53 PM <<Signature on File>> Time spent with patient: CPT Code: CPT Code:
== END 2019-10-08 23:59 | disposition home or self-care (01) ==
LOC: ONCMED 06:56
PROVIDERS: Internal Medicine Medical Oncology; PCP Family Medicine; Visit Provider Radiology Radiation Oncology
DX: C53.0 Malignant neoplasm of endocervix (principal); I10 Essential (primary) hypertension; G47.33 Obstructive sleep apnea (adult) (pediatric); Z92.3 Personal history of irradiation; Z79.899 Other long term (current) drug therapy; Z79.818 Long term (current) use of other agents affecting estrogen receptors and estrogen levels; Z90.710 Acquired absence of both cervix and uterus
CPT/HCPCS: 36415; 80053; 85025; 99214

== ENCOUNTER 2019-10-23 07:58 | Outpatient (RCR) | payer BC, SELFPAY ==
[2019-10-23 13:17] LABS: Basophils % 0.3 %; Eosinophils # 0.2 10^3/uL (0.0-0.8); Eosinophils % 5.9 %; Hematocrit 33.7 % (37.0-47.0); Hemoglobin 11.5 g/dL (11.5-15.3); Lymphocytes # 0.4 10^3/uL (0.8-4.8); Lymphocytes % 10.9 %; Mean Corpuscular HGB Conc 34.1 g/dL (30.0-36.0); Mean Corpuscular Hemoglobin 34.5 pg (28.0-34.0); Mean Corpuscular Volume 101.2 fL (81-99); Mean Platelet Volume 10.4 fL (7.4-10.4); Monocytes # 0.3 10^3/uL (0.2-0.9); Monocytes % 8.1 %; Neutrophils # 2.9 10^3/uL (1.8-7.7); Neutrophils % 74.5 %; Nucleated Red Blood Cells % 0 %; Platelet Count 182 10^3/cmm (130-400); Red Blood Count 3.33 10^6/uL (4.1-5.3); Red Cell Distribution Width 13.2 % (12.1-15.1); White Blood Count 3.9 10^3/uL (4.0-10.0)
[2019-10-23 13:32] LABS: Alanine Aminotransferase 40 U/L (0-33); Albumin Level 4.4 g/dL (3.5-5.2); Alkaline Phosphatase 56 IU/L (35-105); Anion Gap 16.8 (5-19); Aspartate Amino Transferase 24 U/L (0-32); Blood Urea Nitrogen 11 mg/dL (6-20); Calcium 9.5 mg/dL (8.5-10.5); Carbon Dioxide 26 mmol/L (22-29); Chloride 99 mmol/L (98-107); Globulin 2.3 g/dL (1.3-4.6); Glomerular Filtration Rate 102.7 mL/min (90-130); Glucose 104 mg/dL (65-115); Osmolality Calculated 282 mOsm/kg (285-295); Potassium 3.8 mmol/L (3.5-5.1); Sodium 138 mmol/L (136-145); Total Bilirubin 0.4 mg/dL (0.15-1.2); Total Protein 6.7 g/dL (6.6-8.7)
[2019-10-23 15:47] LABS: Vitamin B12 477 pg/mL (232-1245)
--- NOTE | 2019-10-27 12:48 | ONC FU_ITS ---
Dr. Sr Patient Follow-Up Note Patient: Mira Mohan Unit #: [id number]: 1960 Dicatated By: Black Sr M.D.Date of Visit:Oct 23, 2019 Onc Med Follow-up/Prog Note Chief Complaint: Cervical cancer. History of Present Illness: This is a 59 year-old woman with adenocarcinoma of the endocervix, stage IB1 (T1b1, N1, M0). She has been in good general health. She was seen by Dr. Spence for a well woman check on 02/09/2019. She had an abnormal Pap smear with the finding of atypical glandular cells. She then underwent D&C on 03/09/2019. Pathology showed well-differentiated adenocarcinoma involving multiple sites including the endocervix, the ectocervix, and the endometrium. She was referred to Dr. Chen. She had further evaluation with staging PET/CT on 05/15/2019. That study showed significant metabolism in the endometrium consistent with the known malignancy. There were no other sites of metabolically active malignancy noted. MRI of the pelvis on 05/18/2019 showed foci or wall thickening involving the lower endometrial canal extending along the endocervical canal without definite invasion outside of the uterus or through the cervical stroma. An upper limits of normal size right external iliac lymph node also was noted. On 05/22/2019 she underwent robotic-assisted total laparoscopic radical hysterectomy, bilateral salpingo-oophorectomy, bilateral pelvic and periaortic sentinel lymphadenectomy, and laparoscopic omentectomy. Grossly there did appear to be suspicious sentinel lymph nodes but there was no gross evidence of disease outside the uterus. One small area in the peritoneum on the distal ileum mesentery was biopsied. Pathology showed well differentiated adenocarcinoma which appeared to be arising in the endocervix. There was no malignancy identified in the endometrium. The tumor measured 2.0 cm in maximum diameter. Stromal invasion was measured at 3 mm compared to a total cervical thickness of 13 mm. The ectocervical margin and the radial margin were uninvolved. There was evidence of lymphovascular invasion. The specimen contained a total of 8 lymph nodes, which included 4 sentinel lymph nodes. There was involvement in 1/1 right obturator sentinel lymph node. All other lymph nodes were negative. There was no malignancy identified in the distal ileum mesentery biopsy. Her pathologic staging was T1b1, N1. With the involved lymph node, she was recommended to undergo chemoradiation utilizing weekly cisplatin for the chemotherapy. Her other medical illnesses have been limited to hypertension and obstructive sleep apnea. She has not yet been evaluated for CPAP. She is a non-smoker. INTERIM HISTORY: She began week 1 cisplatin concurrently with radiation on 07/24/2019. She experienced some tinnitus and peripheral neuropathy symptoms during the first 24 hours after that treatment. She otherwise tolerated it well. She continued with her week 2 cisplatin on 07/31/2019 and with week 3 on 08/07/2019. At week 4, on 08/14/2019, she was feeling more fatigued and she was also having more nausea and acid reflux symptoms. She was given her full dose of cisplatin, but I did give her a dexamethasone taper, and I also had her start Protonix. She was able to continue with her week 5 cisplatin on 08/21/2019, but I did opt to omit her week 6 treatment due to declining performance status and blood counts. She completed radiation on 08/30/2019, total dose 5040 cGy. She then returned to [facility] for brachytherapy. We have not yet received those records. She is seen for a scheduled visit. She had developed persistent pancytopenia and fatigue following her chemoradiation, enough that it did delay her brachytherapy. She has starting to feel better now, as her energy is improving and she is getting stronger, though she continues to complain that her legs feel trembly and weak. She is working every day, though not full-time. ECOG score is 1. She has good appetite. Her weight is stable. She has not had fever. She does have hot flashes and sweating, though not terrible. She generally has poor tolerance for heat. She has no shortness of breath, cough, or chest pain. She has having some acid reflux, but it is manageable now taking medication as needed. She has loose stools, but not diarrhea. Bladder function has been okay. She has pain in both legs, from the thighs down to her heels. She has some lower back pain. She has numbness/tingling in the extremities, feet moreso than hands. It is chronic and not significantly worse. Medications: hydroCHLOROthiazide 1 Tablet (of 25 mg) Tablet Oral daily, Lisinopril 1 Tablet (of 5 mg) Oral daily, Multivitamin Adult 1 Tablet Oral daily Allergies: Penicillins Review of Systems: Constitutional - She is generally feeling better. Her energy is low but improving. She was able to return to work last week. Her appetite is non-exsistant, but she is able to eat. Her weight is up 10 pounds. No fever or chills. She is having hot flashes with sweating. ECOG score is 1, ENMT - No sinus congestion/drainage. No mouth sores. No sore throat or difficulty swallowing, Hematologic/Lymphatic - No abnormal bruising or bleeding, Respiratory - No shortness of breath. No cough. No pleuritic pain or hemoptysis, Cardiovascular - No angina pain. No palpitations, Gastrointestinal - No nausea or vomiting. She has some acid reflux, but it is manageable taking medication as needed. Her bowels are loose, but not actual diarrhea. No blood in the stool or black stools, Genitourinary (F) - No dysuria or hematuria. No urinary frequency. No urgency or incontinence, Musculoskeletal - She has pain in both legs, from her thighs down to her heels. She also has some lower back pain, Integumentary - No skin complications, Neurologic - She has a little bit of headache. No dizziness. She has numbness/tingling, feet worse than hands. No other focal neurologic symptoms, Psychiatric - No anxiety or depression. No insomnia. Vital Signs: Performed on Oct 23, 2019 14:04 Height - 65.00 in Weight - 209.6 lbs (HIGH) BSA - 2.02 sq.m BMI - 34.88 (HIGH) Temperature - 98.4 F Pulse - 86 /min Respiration - 24 /min BP - 132/75 mm(hg) O2 Sat - 95 % (LOW) Pain - 0 Physical Examination: Constitutional - She sitll looks a little weak generally, Eyes - Sclerae nonicteric. Conjunctivae clear, ENMT - No lesions noted in the oral cavity, Hematologic/Lymphatic - No cervical, clavicular, or axillary adenopathy, Respiratory - Lungs are clear with good air movement bilaterally, Cardiovascular - Heart rhythm is regular. There is no murmur, gallop, or rub noted, Abdomen - Soft. Liver and spleen are not enlarged. There is no abdominal mass or ascites noted and there is no inguinal adenopathy, Extremities - No edema. There is some tenderness in the lateral aspect of both thighs, but above the level of the greater trochanter, Neurologic - No focal neurologic deficits noted. Lab/Imaging: Test performed on Oct 23, 2019 12:40 Sodium 138 mmol/L Vitamin B12 477 pg/mL Potassium 3.8 mmol/L Chloride 99 mmol/L CO2 26 mmol/L Anion Gap 16.8 BUN 11 mg/dL Creatinine 0.6 mg/dL Cr Clearance (Est) 152.3700 mL/min eGFR 102.7 mL/min Glucose 104 mg/dL Calcium 9.5 mg/dL Protein, Total 6.7 g/dL Albumin 4.4 g/dL Globulin 2.3 g/dL Bilirubin, Total 0.4 mg/dL ALT (SGPT) 40 U/L AST (SGOT) 24 U/L Alkaline Phosphatase 56 IU/L WBC 3.9 10 3/uL RBC 3.33 10 6/uL HGB 11.5 g/dL HCT 33.7 % MCV 101.2 fL MCH 34.5 pg MCHC 34.1 g/dL RDW 13.2 % Platelet Count 182 10 3/cmm MPV 10.4 fL Neutrophils 2.9 10 3/uL Lymphocytes 0.4 10 3/uL Monocytes 0.3 10 3/uL Eosinophils 0.2 10 3/uL Basophils 0.0 10 3/uL Neutrophil % 74.5 % Lymphocyte % 10.9 % Monocyte % 8.1 % Eosinophil % 5.9 % Basophils % 0.3 % NRBC % 0 % Impression: 1. Patient with well differentiated adenocarcinoma of the endocervix, stage IB1 (T1b1, N1, M0). 2. She underwent robotic-assisted total laparoscopic radical hysterectomy, bilateral salpingo-oophorectomy, bilateral pelvic and periaortic sentinel lymphadenectomy, and laparoscopic omentectomy on 05/22/2019. Her other medical illnesses include: 3. Hypertension. 4. Obstructive sleep apnea. She is undergoing adjuvant chemoradiation utilizing weekly cisplatin for the chemotherapy. She began her week 1 cisplatin, concurrently with radiation on 07/24/2019. She had neuropathy symptoms and tinnitus the evening following her treatment, but the symptoms had resolved by the following day. Other side effects were mild. She continued with week 2 on 07/31/2019. She again experienced neuropathy symptoms lasting less than 24 hours. Her tinnitus worsened slightly. She was able to continue with week 3 cisplatin on 08/07/2019, with week 4 on 08/14/2019, and with week 5 on 08/21/2019. Her week 6 treatment was held due to declining performance status and blood counts. She completed radiation on 08/30/2019, total dose 5040 cGy. She had significant decline in her performance status after completing her chemoradiation. She had associated anemia and neutropenia, and she also experienced some complement of neuropathy. It was significant enough to delay her brachytherapy, but she was able to complete it. She has been showing gradual recovery, though she continues to have significant fatigue and weakness, particularly in the lower extremities. She also has pain in both legs which starts in the lateral aspect of the thighs. The exact cause is uncertain. Plan: She will remain on observation/expectant management for the cervical cancer. She will be given a prescription for meloxicam 15 mg daily for the musculoskeletal pain, and I also will have her try gabapentin, initially at 300 mg 3 times daily. I will see her again in 1 month. Signed By: Black Sr M.D. <<Signature on File>>
== END 2019-11-07 23:59 | disposition home or self-care (01) ==
LOC: ONCMED 07:58
PROVIDERS: PCP Family Medicine; Visit Provider Internal Medicine Medical Oncology
DX: Z08 Encounter for follow-up examination after completed treatment for malignant neoplasm (principal); Z85.41 Personal history of malignant neoplasm of cervix uteri; D51.9 Vitamin B12 deficiency anemia, unspecified; G47.33 Obstructive sleep apnea (adult) (pediatric); I10 Essential (primary) hypertension
CPT/HCPCS: 36415; 80053; 82607; 85025; 99214

== ENCOUNTER → 2019-11-09 10:14 | Outpatient (BNVA) | payer BC, SELFPAY | PROVIDERS: PCP Family Medicine; Visit Provider Family Medicine | DX: I10 Essential (primary) hypertension (principal); Z79.899 Other long term (current) drug therapy | CPT/HCPCS: 80061; 82044 ==

== ENCOUNTER 2019-11-23 07:28 | Outpatient (RCR) | payer BC, SELFPAY ==
[2019-11-23 09:37] LABS: Basophils % 0.4 %; Eosinophils # 0.2 10^3/uL (0.0-0.8); Eosinophils % 7.4 %; Hematocrit 37.9 % (37.0-47.0); Hemoglobin 12.6 g/dL (11.5-15.3); Lymphocytes # 0.4 10^3/uL (0.8-4.8); Mean Corpuscular HGB Conc 33.2 g/dL (30.0-36.0); Mean Corpuscular Hemoglobin 33.1 pg (28.0-34.0); Mean Corpuscular Volume 99.5 fL (81-99); Mean Platelet Volume 9.6 fL (7.4-10.4); Monocytes # 0.2 10^3/uL (0.2-0.9); Monocytes % 9.5 %; Neutrophils # 1.53 10^3/uL (1.8-7.7); Neutrophils % 66.3 %; Nucleated Red Blood Cells % 0 %; Platelet Count 212 10^3/cmm (130-400); Red Blood Count 3.81 10^6/uL (4.1-5.3); Red Cell Distribution Width 11.9 % (12.1-15.1); White Blood Count 2.3 10^3/uL (4.0-10.0)
[2019-11-23 09:54] LABS: Alanine Aminotransferase 33 U/L (0-33); Albumin Level 4.3 g/dL (3.5-5.2); Alkaline Phosphatase 51 IU/L (35-105); Aspartate Amino Transferase 20 U/L (0-32); Blood Urea Nitrogen 9 mg/dL (6-20); Calcium 9.2 mg/dL (8.5-10.5); Carbon Dioxide 25 mmol/L (22-29); Chloride 102 mmol/L (98-107); Globulin 2.4 g/dL (1.3-4.6); Glomerular Filtration Rate 85.9 mL/min (90-130); Glucose 133 mg/dL (65-115); Osmolality Calculated 284 mOsm/kg (285-295); Sodium 138 mmol/L (136-145); Total Bilirubin 0.4 mg/dL (0.15-1.2); Total Protein 6.7 g/dL (6.6-8.7)
--- NOTE | 2019-11-23 13:15 | ONC FU_ITS ---
Dr. Sr Patient Follow-Up Note Patient: Mira Mohan Unit #: [id number]: 1960 Dicatated By: Black Sr M.D.Date of Visit:Nov 23, 2019 Onc Med Follow-up/Prog Note Chief Complaint: Cervical cancer. History of Present Illness: This is a 59 year-old woman with adenocarcinoma of the endocervix, stage IB1 (T1b1, N1, M0). She has been in good general health. She was seen by Dr. Spence for a well woman check on 02/09/2019. She had an abnormal Pap smear with the finding of atypical glandular cells. She then underwent D&C on 03/09/2019. Pathology showed well-differentiated adenocarcinoma involving multiple sites including the endocervix, the ectocervix, and the endometrium. She was referred to Dr. Chen. She had further evaluation with staging PET/CT on 05/15/2019. That study showed significant metabolism in the endometrium consistent with the known malignancy. There were no other sites of metabolically active malignancy noted. MRI of the pelvis on 05/18/2019 showed foci or wall thickening involving the lower endometrial canal extending along the endocervical canal without definite invasion outside of the uterus or through the cervical stroma. An upper limits of normal size right external iliac lymph node also was noted. On 05/22/2019 she underwent robotic-assisted total laparoscopic radical hysterectomy, bilateral salpingo-oophorectomy, bilateral pelvic and periaortic sentinel lymphadenectomy, and laparoscopic omentectomy. Grossly there did appear to be suspicious sentinel lymph nodes but there was no gross evidence of disease outside the uterus. One small area in the peritoneum on the distal ileum mesentery was biopsied. Pathology showed well differentiated adenocarcinoma which appeared to be arising in the endocervix. There was no malignancy identified in the endometrium. The tumor measured 2.0 cm in maximum diameter. Stromal invasion was measured at 3 mm compared to a total cervical thickness of 13 mm. The ectocervical margin and the radial margin were uninvolved. There was evidence of lymphovascular invasion. The specimen contained a total of 8 lymph nodes, which included 4 sentinel lymph nodes. There was involvement in 1/1 right obturator sentinel lymph node. All other lymph nodes were negative. There was no malignancy identified in the distal ileum mesentery biopsy. Her pathologic staging was T1b1, N1. With the involved lymph node, she was recommended to undergo chemoradiation utilizing weekly cisplatin for the chemotherapy. She began week 1 cisplatin concurrently with radiation on 07/24/2019. She experienced some tinnitus and peripheral neuropathy symptoms during the first 24 hours after that treatment. She otherwise tolerated it well. She continued with her week 2 cisplatin on 07/31/2019 and with week 3 on 08/07/2019. At week 4, on 08/14/2019, she was feeling more fatigued and she was also having more nausea and acid reflux symptoms. She was given her full dose of cisplatin, but I did give her a dexamethasone taper, and I also had her start Protonix. She was able to continue with her week 5 cisplatin on 08/21/2019, but I did opt to omit her week 6 treatment due to declining performance status and blood counts. She completed radiation on 08/30/2019, total dose 5040 cGy. She then underwent vaginal brachytherapy under the direction of Dr. Raz Mohr in [place]. She completed 3 fractions for total dose of 1800 cGy from 09/24 through 10/06/2019. Her other medical illnesses have been limited to hypertension and obstructive sleep apnea. She has not yet been evaluated for CPAP. She is a non-smoker. 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 At her visit last month she was started on both meloxicam and gabapentin. The gabapentin was subsequently replaced with Lyrica at 25 mg 3 times daily. She feels that it is helping somewhat with the neuropathy. With the meloxicam, she is not having as much pain and/or tiredness in her lower back and hips. Her legs still fatigue with activity. Overall, her energy and activity tolerance have shown gradual improvement. Her ECOG score is 1. She has good appetite. She does not have fever. She does have hot flashes and sweating, but not as frequent. Near the end of October and beginning of November she had an outbreak of sores in her mouth, but those subsequently resolved. She has no shortness of breath or cough. She had an episode of chest pain after the first dose of meloxicam, but none since then. She is not having nausea. She has some acid reflux, but nothing severe. Bowel and bladder function have been okay. She has had a little bit of headache. She only rarely has dizziness. She still has neuropathy in her hands and feet. Medications: hydroCHLOROthiazide 1 Tablet (of 25 mg) Tablet Oral daily, Lisinopril 1 Tablet (of 5 mg) Oral daily, Lyrica 1 Capsule Oral t.i.d., Meloxicam 1 Tablet (of 15 mg) Oral daily, Multivitamin Adult 1 Tablet Oral daily Allergies: Penicillins Review of Systems: Constitutional - Her energy is improving, but she still has limited activity. Appetite is good and weight is stable. No fever. She has hot flashes and sweating, but not as bad. ECOG score is 1, ENMT - No sinus congestion/drainage. She developed mouth sores about 2 weeks ago, but those resolved. No sore throat or difficulty swallowing, Hematologic/Lymphatic - No abnormal bruising or bleeding, Respiratory - No shortness of breath. No cough. No pleuritic pain or hemoptysis, Cardiovascular - No angina pain. No palpitations, Gastrointestinal - No nausea or vomiting. She has some acid reflux, but nothing severe. No diarrhea or constipation. No blood in the stool or black stools, Genitourinary (F) - No dysuria or hematuria. No urinary frequency. No urgency or incontinence, Musculoskeletal - She has pain and tiredness in her lower back and hips, but not as bad as it had been. She has some generalized achiness, Integumentary - No skin rash, Neurologic - She was having a little bit of headache. She rarely has dizziness. She still has neuropathy in her hands and feet, Psychiatric - No anxiety or depression. No insomnia. Vital Signs: Performed on Nov 23, 2019 09:41 Height - 65.00 in Weight - 210.0 lbs (HIGH) BSA - 2.02 sq.m BMI - 34.95 (HIGH) Temperature - 97.9 F (LOW) Pulse - 70 /min Respiration - 20 /min BP - 126/79 mm(hg) O2 Sat - 97 % Pain - 1 Physical Examination: Constitutional - She looks pretty good generally, Eyes - Sclerae nonicteric. Conjunctivae clear, ENMT - No lesions noted in the oral cavity, Hematologic/Lymphatic - No cervical, clavicular, or axillary adenopathy, Respiratory - Lungs are clear with good air movement bilaterally, Cardiovascular - Heart rhythm is regular. There is no murmur, gallop, or rub noted, Abdomen - Soft. Liver and spleen are not enlarged. There is no abdominal mass or ascites noted and there is no inguinal adenopathy, Extremities - No edema, Neurologic - No focal neurologic deficits noted. Lab/Imaging: Test performed on Nov 23, 2019 09:05 Sodium 138 mmol/L Potassium 4.0 mmol/L Chloride 102 mmol/L CO2 25 mmol/L Anion Gap 15.0 BUN 9 mg/dL Creatinine 0.7 mg/dL Cr Clearance (Est) 130.6000 mL/min eGFR 85.9 mL/min Glucose 133 mg/dL Calcium 9.2 mg/dL Protein, Total 6.7 g/dL Albumin 4.3 g/dL Globulin 2.4 g/dL Bilirubin, Total 0.4 mg/dL ALT (SGPT) 33 U/L AST (SGOT) 20 U/L Alkaline Phosphatase 51 IU/L WBC 2.3 10 3/uL RBC 3.81 10 6/uL HGB 12.6 g/dL HCT 37.9 % MCV 99.5 fL MCH 33.1 pg MCHC 33.2 g/dL RDW 11.9 % Platelet Count 212 10 3/cmm MPV 9.6 fL Neutrophils 1.53 10 3/uL Lymphocytes 0.4 10 3/uL Monocytes 0.2 10 3/uL Eosinophils 0.2 10 3/uL Basophils 0.0 10 3/uL Neutrophil % 66.3 % Lymphocyte % 16.0 % Monocyte % 9.5 % Eosinophil % 7.4 % Basophils % 0.4 % NRBC % 0 % Impression: 1. Patient with well differentiated adenocarcinoma of the endocervix, stage IB1 (T1b1, N1, M0). 2. She underwent robotic-assisted total laparoscopic radical hysterectomy, bilateral salpingo-oophorectomy, bilateral pelvic and periaortic sentinel lymphadenectomy, and laparoscopic omentectomy on 05/22/2019. Her other medical illnesses include: 3. Hypertension. 4. Obstructive sleep apnea. She underwent adjuvant chemoradiation utilizing weekly cisplatin for the chemotherapy. She began her week 1 cisplatin, concurrently with radiation on 07/24/2019. She had neuropathy symptoms and tinnitus the evening following her treatment, but the symptoms had resolved by the following day. Other side effects were mild. She continued with week 2 on 07/31/2019. She again experienced neuropathy symptoms lasting less than 24 hours. Her tinnitus worsened slightly. She was able to continue with week 3 cisplatin on 08/07/2019, with week 4 on 08/14/2019, and with week 5 on 08/21/2019. Her week 6 treatment was held due to declining performance status and blood counts. She completed radiation on 08/30/2019, total dose 5040 cGy. She then underwent vaginal brachytherapy under the direction of Dr. Raz Mohr in [place]. She completed 3 fractions for total dose of 1800 cGy from 09/24 through 10/06/2019. She had significant decline in her performance status after completing her chemoradiation. She had associated anemia and neutropenia, and she also developed persistent neuropathy and musculoskeletal. It was significant enough to cause a delay in her brachytherapy. She has since then shown some recovery and symptomatic improvement, though it has been gradual and not dramatic. Plan: She will remain on observation/expectant management for the cervical cancer. She will continue meloxicam 15 mg daily for the musculoskeletal pain. I will have her try increasing the Lyrica dosage to 50 mg bid. I will see her again in 3 months, or sooner as needed. Signed By: Black Sr M.D. <<Signature on File>>
== END 2019-12-08 23:59 | disposition home or self-care (01) ==
LOC: ONCMED 07:28
PROVIDERS: PCP Family Medicine; Visit Provider Internal Medicine Medical Oncology
DX: C53.0 Malignant neoplasm of endocervix (principal); G47.33 Obstructive sleep apnea (adult) (pediatric); I10 Essential (primary) hypertension; T45.1X5D Adverse effect of antineoplastic and immunosuppressive drugs, subsequent encounter; D70.1 Agranulocytosis secondary to cancer chemotherapy; G62.0 Drug-induced polyneuropathy; D64.81 Anemia due to antineoplastic chemotherapy; Z90.710 Acquired absence of both cervix and uterus; C78.6 Secondary malignant neoplasm of retroperitoneum and peritoneum; C77.2 Secondary and unspecified malignant neoplasm of intra-abdominal lymph nodes; Z92.21 Personal history of antineoplastic chemotherapy; Z92.3 Personal history of irradiation
CPT/HCPCS: 36415; 80053; 85025; 99214

== ENCOUNTER → 2020-05-27 10:12 | Outpatient (BNVA) | payer BC, SELFPAY | PROVIDERS: PCP Family Medicine; Visit Provider Family Medicine | DX: I10 Essential (primary) hypertension (principal); M79.645 Pain in left finger(s); L81.9 Disorder of pigmentation, unspecified; G89.29 Other chronic pain; Z68.34 Body mass index [BMI] 34.0-34.9, adult | CPT/HCPCS: 80053; 85025 ==

== ENCOUNTER → 2020-11-25 09:48 | Outpatient (BNVA) | payer BC, SELFPAY | PROVIDERS: PCP Family Medicine; Visit Provider Family Medicine | DX: I10 Essential (primary) hypertension (principal) | CPT/HCPCS: 80053; 80061; 82043; 85025 ==

== ENCOUNTER → 2020-11-26 14:20 | Outpatient (BNVA) | payer BC, SELFPAY | PROVIDERS: PCP Family Medicine; Visit Provider Family Medicine | DX: R73.01 Impaired fasting glucose (principal); I10 Essential (primary) hypertension | CPT/HCPCS: 83036 ==

== ENCOUNTER → 2021-05-26 09:27 | Outpatient (BNVA) | payer BC, SELFPAY | PROVIDERS: PCP Family Medicine; Visit Provider Family Medicine | DX: I10 Essential (primary) hypertension (principal) | CPT/HCPCS: 80053; 85025 ==

== ENCOUNTER → 2021-11-24 09:17 | Outpatient (BNVA) | payer BC, SELFPAY | PROVIDERS: PCP Family Medicine; Visit Provider Family Medicine | DX: I10 Essential (primary) hypertension (principal); R53.83 Other fatigue | CPT/HCPCS: 80053; 80061; 82043; 83036; 84443 ==

== ENCOUNTER → 2022-07-13 10:31 | Outpatient (BNVA) | payer BC, SELFPAY | PROVIDERS: PCP Family Medicine; Visit Provider Family Medicine | DX: I10 Essential (primary) hypertension (principal); R73.03 Prediabetes | CPT/HCPCS: 80053; 80061; 83036; 85025 ==